=== PATIENT | female | born 1975 | race Caucasian/White ===

== ENCOUNTER 2019-06-10 07:51 | Outpatient (CLI) | payer BC, SELFPAY ==
--- NOTE | 2019-06-10 08:01 | DI.RAD_ITS ---
SYMPTOM/DIAGNOSIS: SHOULDER PAIN RIGHT M25.511 RIGHT SHOULDER: Five views. Comparison 04/21/08 No bone or joint abnormality is identified. The soft tissues are unremarkable. IMPRESSION: Negative right shoulder.
--- NOTE | 2019-06-10 08:01 | DI.RAD_ITS ---
SYMPTOM/DIAGNOSIS: STERNOCLAVICULAR JOINT PJAIN, RT. M25.511 STERNOCLAVICULAR JOINTS: Three views were obtained. No bone or joint abnormality is identified. The soft tissues are unremarkable. IMPRESSION: Negative examination.
== END 2019-06-10 08:11 ==
PROVIDERS: PCP Family Medicine; Visit Provider Specialist/Technologist Athletic Trainer
DX: M25.511 Pain in right shoulder (principal)
CPT/HCPCS: 71130; 73030

== ENCOUNTER 2019-12-15 10:17 | Outpatient (REF) | payer BC, SELFPAY | END 2019-12-15 10:37 | LOC: LBN 10:17 | PROVIDERS: PCP Family Medicine; Visit Provider Obstetrics & Gynecology | DX: R39.15 Urgency of urination (principal) | CPT/HCPCS: 87086 ==

== ENCOUNTER 2020-01-10 02:39 | Outpatient (CLI) | payer BC, SELFPAY ==
--- NOTE | 2020-01-10 12:45 | DI.MAMMO_ITS ---
EXAM: MAMMO SCREENING CLINICAL HISTORY: screening Z12.39 TECHNIQUE: Mammograms were interpreted according to the usual protocol including computer analysis w [employer] CAD system, tomosynthesis and C-view imaging. COMPARISON: 2013 through 2017 FINDINGS: The breasts are composed of scattered fibroglandular densities, Breast Density category B. Right breast: No suspicious masses or suspicious microcalcifications are seen. No skin thickening or abnormal axillary lymph nodes are seen. There has been no significant change from prior exams. Left breast: There is a circumscribed area of nodularity now seen in the upper outer quadrant of the left breast measuring 16 millimeters in diameter. Spot compression views and ultrasound are requeste d for further evaluation. No suspicious calcifications are seen. IMPRESSION: Right breast: BIRADS Category 1, negative mammogram. Yearly screening mammography is recommended. Left breast: BI-RADS Cat 0 - Assessment Incomplete: Need additional imaging evaluation. Breast Density - Category B - Scattered areas of fibroglandular density.
== END 2020-01-10 02:59 ==
PROVIDERS: PCP Family Medicine; Visit Provider Obstetrics & Gynecology
DX: Z12.31 Encounter for screening mammogram for malignant neoplasm of breast (principal); R92.8 Other abnormal and inconclusive findings on diagnostic imaging of breast
CPT/HCPCS: 77063; 77067

== ENCOUNTER 2020-01-10 14:25 | Outpatient (CLI) | payer BC, SELFPAY ==
[2020-01-10 14:54] LABS: Abs Immature Grans 0.02 k/cumm (0.0-0.09); Absolute Basophil Count 0.01 k/cumm (0.0-0.2); Absolute Eosinophil Count 0.08 k/cumm (0.0-0.7); Absolute Lymphocyte Count 2.42 k/cumm (1.2-3.4); Absolute Monocyte Count 0.58 k/cumm (0.11-0.7); Absolute Neutrophil Count 5.68 k/cumm (1.2-6.7); Basophils % 0.1; Eosinophils % 0.9; HCT 37.5 % (36.0-46.0); HGB 12.8 g/dL (12.0-15.5); Immature Grans % 0.2 %; Lymphocytes % 27.5; Mean Corp. HGB Concentration 34.1 g/dL (32.0-36.0); Mean Corpuscular Hemoglobin 30.3 pg (27.0-33.0); Mean Corpuscular Volume 88.7 fL (80-95); Monocytes % 6.6; Neutrophils % 64.7; Platelet Count 335 x1000/uL (130-400); RBC 4.23 m/cumm (4.00-5.20); RBC Distribution Width 13.4 % (11.7-14.6); White Blood Cell Count 8.79 k/cumm (4.4-10.8)
[2020-01-10 15:16] LABS: Hemoglobin A1C 5.2 % (3.8-5.6)
[2020-01-10 15:44] LABS: ALT 43 U/L (14-59); AST 18 U/L (15-37); Albumin 4.1 g/dL (3.4-5.0); Alkaline Phosphatase 73 U/L (46-116); Anion Gap 13.2 mmol/L (3-11); BUN 12 mg/dL (7-18); Bilirubin, Total 1.8 mg/dL (0.2-1.0); CO2 22.8 mmol/L (21.0-32.0); CREATININE 0.72 mg/dL (0.55-1.02); Calcium 9.1 mg/dL (8.5-10.1); Calculated LDL 165 mg/dL (<100); Chloride 104 mmol/L (98-107); Cholesterol 275 mg/dL (<200); Glucose 99 mg/dL (74-106); HDL Cholesterol 49 mg/dL (40-60); Potassium 3.8 mmol/L (3.5-5.1); Sodium 140 mmol/L (136-145); TSH (W/Ref FT4) 1.77 uIU/mL (0.36-3.74); Total Protein 7.1 g/dL (6.4-8.2); Triglyceride 308 mg/dL (<150)
== END 2020-01-10 14:45 ==
PROVIDERS: PCP Family Medicine; Visit Provider Obstetrics & Gynecology
DX: Z00.00 Encounter for general adult medical examination without abnormal findings (principal); Z13.1 Encounter for screening for diabetes mellitus; Z13.220 Encounter for screening for lipoid disorders
CPT/HCPCS: 36415; 80053; 80061; 83036; 84443; 85025

== ENCOUNTER 2020-01-13 03:08 | Outpatient (CLI) | payer BC, SELFPAY ==
--- NOTE | 2020-01-13 | DI.US_ITS ---
EXAM: US BREAST RT LIMITED AND ADDITIONAL VIEWS RIGHT BREAST CLINICAL HISTORY: F/U MAMMO/SPOTS, NODULARITY UPPER OUTER QUAD RT BREAST TECHNIQUE: Ultrasound performed using standard protocol. COMPARISON: MG MAMMO SCREENING from 01/10/2020 FINDINGS: Additional views of the right breast: CC and MLO spot-compression views are performed of the lower a nd outer quadrants. There is a persistent circumscribed nodule measuring 18 millimeters in greatest dimension. Right breast ultrasound: Right breast ultrasound shows a 1.3 x 0.6 x 1.8 centimeter cyst with some in ternal debris located in the 7 o'clock position 9 cm from the nipple, corresponding to the mammograph ic abnormality. An additional 1.1 centimeters cyst is seen in the 9 o'clock position 8 cm from the n ipple. No solid masses are identified. IMPRESSION: BI-RADS category 2, negative with benign findings. Yearly screening mammography is recommended. BI-RADS Cat 2 - Benign Findings Breast Density - Category B - Scattered areas of fibroglandular density DATA REPOSITORY:
--- NOTE | 2020-01-13 14:43 | DI.MAMMO_ITS ---
US BREAST RT LIMITED AND ADDITIONAL VIEWS RIGHT BREAST CLINICAL HISTORY: F/U MAMMO/SPOTS, NODULARITY UPPER OUTER QUAD RT BREAST TECHNIQUE: Ultrasound performed using standard protocol. COMPARISON: MG MAMMO SCREENING from 01/10/2020 FINDINGS: Additional views of the right breast: CC and MLO spot-compression views are performed of the lower a nd outer quadrants. There is a persistent circumscribed nodule measuring 18 millimeters in greatest d imension. Right breast ultrasound: Right breast ultrasound shows a 1.3 x 0.6 x 1.8 centimeter cyst with some in ternal debris located in the 7 o'clock position 9 cm from the nipple, corresponding to the mammograph ic abnormality. An additional 1.1 centimeters cyst is seen in the 9 o'clock position 8 cm from the ni pple. No solid masses are identified. IMPRESSION: BI-RADS category 2, negative with benign findings. Yearly screening mammography is recommended. BI-RADS Cat 2 - Benign Findings Breast Density - Category B - Scattered areas of fibroglandular density
== END 2020-01-13 03:28 ==
PROVIDERS: PCP Family Medicine; Visit Provider Obstetrics & Gynecology
DX: Z12.31 Encounter for screening mammogram for malignant neoplasm of breast (principal); R92.8 Other abnormal and inconclusive findings on diagnostic imaging of breast; N60.11 Diffuse cystic mastopathy of right breast
CPT/HCPCS: 76642; 77063; 77067

== ENCOUNTER 2021-01-17 01:22 | Outpatient (CLI) | payer BC, SELFPAY ==
--- NOTE | 2021-01-17 06:15 | DI.MAMMO_ITS ---
EXAM: MG MAMMO SCREENING CLINICAL HISTORY: screening,Z12.39 TECHNIQUE: Bilateral full field digital CC and MLO mammographic images were obtained with 3D tomosyn thesis and utilizing computer aided detection (CAD). COMPARISON: Available for comparison. FINDINGS: Masses/Architectural Distortion: There are breast nodules seen in the right breast. There has been i nterval increase in the nodule seen in the upper outer quadrant of the right breast 9.7 cm from the n ipple. There has been decrease in size of the nodule seen in the lower outer quadrant of the right b reast. No suspicious nodules are identified. Microcalcifications: No suspicious pleomorphic-type are seen. Skin Thickening/Nipple Retraction: None. IMPRESSION: 1. Increase in size of a upper-outer quadrant right breast nodule. 2. Right breast ultrasound is recommended for further evaluation. BI-RADS Category 0 - Assessment Incomplete: Need additional imaging evaluation Breast Density - Category B - Scattered areas of fibroglandular density Breast density category C or D implies that the patient has dense breast tissue. Dense breast tissue is very common and is not abnormal but dense breast tissue can make it harder to find cancer on a ma mmogram. Also, dense breast tissue may increase their breast cancer risk. This information about the result of the mammogram report was provided to the patient to raise their awareness. Use this report when you speak with the patient about their risks for breast cancer, which includes their family hist ory. At that time, you may recommend for more screening tests (Ultrasound or MRI) as they might be us eful based on their risk. A negative radiographic report should not delay biopsy if a dominant or clinically suspicious mass is present. Up to ten percent of cancers are not identified on mammography. A negative report may reinforce clinical impression. Adenosis and dense breasts may obscure an underlying neoplasm. False positive reports average 6 to 10%. Patient will receive a letter notifying them of these results.
== END 2021-01-17 01:42 ==
PROVIDERS: PCP Family Medicine; Visit Provider Nurse Practitioner Family
DX: Z12.31 Encounter for screening mammogram for malignant neoplasm of breast (principal); N63.11 Unspecified lump in the right breast, upper outer quadrant
CPT/HCPCS: 77063; 77067

== ENCOUNTER 2021-01-22 01:09 | Outpatient (CLI) | payer BC, SELFPAY ==
--- NOTE | 2021-01-22 | DI.US_ITS ---
EXAM: US BREAST RT LIMITED CLINICAL HISTORY: F/U MAMMO, INCREASE IN SIZE OF UPPER OUTER QUADRANT RT BREAST NODULE TECHNIQUE: Ultrasound performed using standard protocol. COMPARISON: US US BREAST RT LIMITED from 01/13/2020 FINDINGS: Right breast ultrasound was performed to evaluate well-circumscribed lateral breast mass seen recent mammogram. Ultrasound shows a 12 x 9 x 11 millimeter in diameter simple cyst in the 10 o'clock posit ion in the breast about 8 cm from the nipple. Additionally there is a 6 millimeter in diameter simpl e cyst in the 10 o'clock position 4 cm from the nipple and a 9 x 4 x 8 millimeter in diameter simple cyst in the 10 o'clock position about 2 cm from the nipple. No solid mass identified. IMPRESSION: The mammographically identified upper-outer quadrant mass of the right breast corresponds to a simple cyst identified ultrasonographically. BI-RADS Cat 2 - Benign Findings Follow-up mammogram recommended in 12 months. DATA REPOSITORY:
== END 2021-01-22 01:29 ==
PROVIDERS: PCP Family Medicine; Visit Provider Nurse Practitioner Family
DX: N60.01 Solitary cyst of right breast (principal); R92.8 Other abnormal and inconclusive findings on diagnostic imaging of breast
CPT/HCPCS: 76642

== ENCOUNTER 2022-04-18 15:42 | Outpatient (REF) | payer BC, SELFPAY ==
[2022-04-18 20:15] LABS: Calculated LDL 164 mg/dL (<100); Cholesterol 255 mg/dL (<200); Glucose 96 mg/dL (74-106); HDL Cholesterol 53 mg/dL (40-60); Triglyceride 191 mg/dL (<150)
== END 2022-04-18 15:43 | disposition home or self-care (01) ==
LOC: NCHCN 15:42
PROVIDERS: PCP Family Medicine; Visit Provider Family Medicine
DX: Z00.00 Encounter for general adult medical examination without abnormal findings (principal); Z13.1 Encounter for screening for diabetes mellitus; Z13.220 Encounter for screening for lipoid disorders
CPT/HCPCS: 80061; 82947

== ENCOUNTER → 2022-04-25 00:48 | Outpatient (CLI) | payer BC, SELFPAY ==
--- NOTE | 2022-04-25 14:56 | DI.MAMMO_ITS ---
Exam(s) MAMMO SCREENING EXAM: MAMMO SCREENING CLINICAL HISTORY: SCREENING FOR BREAST CANCER Z12.31 [facility] Z00.00 TECHNIQUE: Mammograms were interpreted according to the usual protocol including computer analysis w [employer] CAD system, tomosynthesis and C-view imaging. COMPARISON: FINDINGS: The breasts are of moderate density with fairly symmetrical distribution of fibroglandular tissue. N o dominant mass or clumped microcalcification is identified in either breast. The current examinatio n is compared with previous examinations including January 2021 and there has been no gross interval ch rico in appearance in comparison with the prior studies. IMPRESSION: No specific evidence of malignancy at this time. Routine screening examinations are suggested at yea rly intervals due to the family history of breast carcinoma. BI-RADS Category 1 - Negative Breast Density - Category B - Scattered areas of fibroglandular density
== END ==
PROVIDERS: PCP Family Medicine; Visit Provider Family Medicine
DX: Z00.00 Encounter for general adult medical examination without abnormal findings (principal); Z12.31 Encounter for screening mammogram for malignant neoplasm of breast; Z80.3 Family history of malignant neoplasm of breast
CPT/HCPCS: 77063; 77067

== ENCOUNTER 2022-07-22 15:09 | Outpatient (REF) | payer BC, SELFPAY ==
--- NOTE | 2022-07-22 14:00 | PAPFT_PTH ---
PATIENT: Zaida Young LOC: [facility] U#:[id number] AGE/SX: 46/F ROOM: RE07/22/[address]: Sneha Agustin V : 1975 BED: DIS: 07/22/2022 SPEC #: [id number] RECD: 07/22/22 18:21 STATUS: GARRY REMendez #: [id number] ADRIAN: 07/22/22 14:[address]: Sneha Agustin V DEPT: [facility] Cytology RECD BY: Camelia Selby Tissues: 1 - CX/ENDOCX FOR PAP SMEARS Procedures: PAP THIN PREP/UVM Screening HPV DNA PROBE Comments: [id number]
== END 2022-07-22 15:10 | disposition home or self-care (01) ==
LOC: NCHCN 15:09
PROVIDERS: PCP Family Medicine; Visit Provider Family Medicine
DX: Z12.4 Encounter for screening for malignant neoplasm of cervix (principal); Z11.51 Encounter for screening for human papillomavirus (HPV)
CPT/HCPCS: 88142; 87624

== ENCOUNTER 2023-05-05 00:40 | Outpatient (CLI) | payer BC, SELFPAY ==
--- NOTE | 2023-05-05 12:15 | DI.MAMMO_ITS ---
Exam(s) MAMMO SCREENING EXAM: MAMMO SCREENING CLINICAL HISTORY: SCREENING, Z12.31 TECHNIQUE: Mammograms were interpreted according to the usual protocol including computer analysis w [employer] CAD system, tomosynthesis and C-view imaging. COMPARISON: 2013 through 2021 FINDINGS: The breasts are composed of scattered fibroglandular densities, Breast Density category B. No suspicious masses or suspicious microcalcifications are seen. No skin thickening or abnormal axillary lymph nodes are seen. There has been no significant change from prior exams. IMPRESSION: BI-RADS Category 1, Negative mammogram Yearly screening mammography is recommended. Breast Density - Category B, scattered fibroglandular densities. A negative radiographic report should not delay biopsy if a dominant or clinically suspicious mass is present. Up to ten percent of cancers are not identified on mammography. A negative report may reinforce clinical impression. Adenosis and dense breasts may obscure an underlying neoplasm. False positive reports average 6 to 10%. Patient will receive a letter notifying them of these results.
== END 2023-05-05 01:00 ==
LOC: DI 00:41
PROVIDERS: PCP Family Medicine; Visit Provider Family Medicine
DX: Z12.31 Encounter for screening mammogram for malignant neoplasm of breast (principal); R92.8 Other abnormal and inconclusive findings on diagnostic imaging of breast
CPT/HCPCS: 77063; 77067

== ENCOUNTER 2023-08-13 08:40 | Outpatient (REF) | payer BC, SELFPAY ==
[2023-08-13 15:27] LABS: Glucose 108 mg/dL (74-106)
[2023-08-13 16:01] LABS: Calculated LDL 199 mg/dL (<100); Cholesterol 285 mg/dL (<200); HDL Cholesterol 57 mg/dL (40-60); Triglyceride 147 mg/dL (<150)
== END 2023-08-13 08:41 | disposition home or self-care (01) ==
LOC: NCHCN 08:40
PROVIDERS: PCP Family Medicine; Visit Provider Family Medicine
DX: Z00.00 Encounter for general adult medical examination without abnormal findings (principal)
CPT/HCPCS: 80061; 82947

== ENCOUNTER 2023-12-11 08:17 | Day surgery (SDC) | payer BC, SELFPAY ==
--- NOTE | 2023-12-10 11:36 | W.PM.DSUDISC ---
Date of service: 12/11/23 Time of Service: 09:59 Discharge Plan Disposition Patient Disposition: Home Condition: Good Discharge Details Reason For Visit: Screening colonoscopy Attending Provider: Cuate Munroe Primary Care Provider: Sneha Agustin V Home Meds and New Rx's Prescriptions: Continued cholecalciferol (vitamin D3) 2,000 unit capsule 2,000 unit PO DAILY fluoxetine [Prozac] 10 mg capsule 10 mg PO DAILY evening primrose oil 500 mg capsule 500 mg PO DAILY Rx Instructions: give with meal/snack zinc 50 MG tablet 50 mg PO DAILY magnesium 250 MG tablet 250 mg PO DAILY multivitamin 1 EACH capsule 1 ea PO DAILY omega 5-hev-wiq-fish oil 1 EACH capsule 1 ea PO DAILY Discontinued bisacodyl [Dulcolax (bisacodyl)] 5 mg tablet,delayed release (DR/EC) 5 mg PO ONCE Qty: 4 0RF Rx Instructions: Colonoscopy Bowel Prep- Per Instructions polyethylene glycol 3350 17 gram/dose powder 238 g PO ONCE Qty: 238 0RF Rx Instructions: Colonoscopy Bowel Prep- Per Instructions Discharge Instructions Instructions: Colorectal Polyps (GEN) Additional Instructions: Zaida, you did great today. Hopefully the colonoscopy was a relatively comfortable experience for you. Everything went very smoothly during the procedure, he did have 2 polyps. Both were quite small. In fact one of them, might not even be a true polyp. Regardless, I removed both of these things, and I will send them off for testing. Once I have the pathology report that describes the nature of the polyps I will give you a call and let you know the timing of your next colonoscopy. The worst case scenario would be 3 years, but I am optimistic that it will be a 5-year follow-up. If you have any questions at all, please do not hesitate to give us a call or just swing by at any time. 1. If tolerated, consume a soft, low fiber diet for 1-2 days. 2. Do not drive, drink alcohol, operate machinery, make critical decisions, or do activities that require coordination or balance for 24 hours. 3. Because air was put into your colon during the procedure, expelling air from your rectum (passing gas or farting) is normal. 4. You may not have a bowel movement for 1-3 days because of the colonoscopy prep. This is normal. 5. Go directly to the emergency room if you notice any of the following: Develop chills (warm to touch), or if you have a thermometer and your temperature is above 101 Difficulty breathing or difficultly swallowing Persistent vomiting Severe abdominal pain, other than gas cramps Severe chest pain Black, tarry stools Any bleeding ? exceeding one tablespoon 6. Call your physician if the site where your intravenous was started becomes red, swollen, painful, and warm to touch. 7. Your physician has reviewed your pre-procedure medications. Please continue to take those medications as previously ordered. You will be given specific information/education regarding any changes to your medications before leaving. Activity:: Activity as Tolerated Diet:: As Tolerated Discharge Orders Discharge Orders: Discharge Order (Routine); Ordered 12/10/23 Ordered By: Cuate Munroe DS: Diagnosis Discharge Diagnosis (1) Encounter for screening colonoscopy: Status: Acute Asessment and Plan: Follow-up on polypectomy results
--- NOTE | 2023-12-10 11:37 | W.COLOREPORT ---
Date of service: 12/11/23 Time of Service: 10:01 Colonoscopy Report Date of procedure: 12/11/23 Pre-op diagnosis general: Screening colonoscopy Post-op diagnosis procedure note: other (Colorectal polyps) Procedure: Colonoscopy with polypectomy Surgeon: Cuate Munroe Anesthesia Type: General:No Airway Estimated blood loss (mL): 5 Pathology: other (0.25 cm rectal polyp, 0.5 cm colon polyp at 75 cm) Complications: None Disposition: same day Indications: Patient is 48 years old, she needs her for screening colonoscopy Prep: Miralax/Dulcolax Procedure Start Time: 09:37 Procedure End Time: 09:53 Retraction Time: 8 Findings: 0.25 cm rectal polyp, 0.5 cm colon polyp at 75 cm Procedure Description: After the induction of monitored anesthetic care, and with the patient in left lateral decubitus position, I began by performing an external anorectal exam.? Perineum and skin were normal, as was the anal verge.? There was no evidence of external hemorrhoids.? Next, I performed a digital rectal exam.? I did not appreciate any abnormal findings.? Next, I advanced a colonoscope into the rectal vault.? I performed retroflexion.? This was normal.? Using insufflation, I then advanced the colonoscope beyond the rectal folds and into the sigmoid colon before advancing towards the cecum.? The quality of the prep was outstanding.? The scope was noted to be in the cecum by identification of the ileocecal valve and appendiceal orifice.? I then began withdrawing the colonoscope using repeated irrigation as necessary for full evaluation of the colonic mucosa. Around 75 cm from the anal verge I identified a 0.5 cm polyp. ?It appeared slightly pedunculated in character. ?I was able to remove this with a cold forcep polypectomy. ?I examined the site, and there was minimal bleeding. ?Once this was completed, I continued to withdraw the scope and examine the remainder of the colonic mucosa. ?Once the scope was withdrawn to the level of the rectum, great care was taken to examine portions of the rectal folds.? Just at the upper portion of the rectal vault was another polyp. This was flat. It was 0.25 cm. It was removed with cold forceps in a similar fashion to the first. There were no issues. Finally, the scope was withdrawn and the patient was brought to the same-day surgery recovery unit as the anesthetic wore off. ?The findings and instructions were shared with the patient prior to discharge. [place] Bowel Prep [place] Bowel Prep Right Colon: 3 Left Colon: 3 Transverse Colon: 3 Total Score: 9
[2023-12-11 08:29] VITALS: BP 125/84; PULSE 82; RESP 16; TEMP 36.3; O2SAT 98
--- NOTE | 2023-12-11 08:36 | ANES.PREOP_ITS ---
General Info Date of Service Date Performed: 12/11/23 Height: 5 ft 5.5 in Weight: 77.111 kg Body Mass Index (BMI): 27.8 Surgical Procedure: Operation Date: 12/11/23 10:05 Proposed Procedure Side Surgeon kirk Munroe MD Meds Allergies and Home Medications Allergies Allergy/AdvReac Type Severity Reaction Status Date / Time cefaclor [From Ceclor] Allergy Severe COMPROMISED Verified 12/11/23 08:41 AIRWAY amoxicillin trihydrate Allergy Intermediate HIVES Verified 12/11/23 08:41 [From Augmentin] Penicillins Allergy Intermediate HIVE Verified 12/11/23 08:41 potassium clavulanate Allergy Intermediate HIVES Verified 12/11/23 08:41 [From Augmentin] sulfamethoxazole Allergy Mild HIVES Verified 12/11/23 08:41 [From Septra] trimethoprim [From Septra] Allergy Mild HIVES Verified 12/11/23 08:41 codeine AdvReac Intermediate Nausea/ Verified 12/11/23 08:41 vomiting pain meds AdvReac Intermediate Nausea Uncoded 12/11/23 08:41 Home Medication Medication Instructions Recorded magnesium 250 mg tablet 250 mg PO DAILY 10/26/17 multivitamin 1 ea PO DAILY 10/26/17 omega 8-hmz-gfa-fish oil 300 1 ea PO DAILY 10/26/17 mg-1,000 mg capsule zinc 50 mg tablet 50 mg PO DAILY 10/26/17 cholecalciferol (vitamin D3) 50 2,000 unit PO DAILY 02/18/19 mcg (2,000 unit) capsule evening primrose oil 500 mg capsule 500 mg PO DAILY 03/20/21 fluoxetine 10 mg capsule (Prozac) 10 mg PO DAILY 11/26/23 Current Visit Medications: Current Medications Generic Name Dose Route Start Last Admin Trade Name Freq PRN Reason Stop Dose Admin Hyoscyamine Sulfate 0.125 mg 12/10/23 11:38 Hyoscyamine 0.125 Mg Sl/Oral/Chew SL 01/09/24 11:37 DIRECTED PRN Ringer's Solution 1,000 mls @ 80 mls/hr 12/11/23 06:00 IV 12/11/23 23:59 INFUSION JOSHUA IV Miscellaneous Supplies 1 each 12/11/23 06:00 Iv Access IV 12/11/23 23:59 DIRECTED [facility] Ondansetron HCl 4 mg 12/10/23 11:38 Ondansetron 4 Mg/2 Ml Vial IVP 01/09/24 11:37 Q4H PRN PRN Nausea / Vomiting Sodium Chloride 0 ml 12/11/23 06:00 Normal Saline Flush 10 Ml Syr IV 12/11/23 23:59 PRN PRN Sodium Chloride 0 ml 12/11/23 06:00 Normal Saline 10 Ml Vial IJ 12/11/23 23:59 DIRECTED PRN Sterile Water 0 ml 12/11/23 06:00 Water,Injection,Sterile 10 Ml Vial IJ 12/11/23 23:59 DIRECTED PRN PFSH Active Problems Active Problems: Problem Status Onset Code Encounter for screening colonoscopy Z12.11 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 Counselling with Maycol Llamas in past. Surgical History Surgical History (Updated 12/11/23 @ 08:35 by Melba Banuelos RN) Hx of hysterectomy Status post laparoscopic supracervical hysterectomy suburethral sling reduction mammoplasty abdominoplasty Tubal Ligation, Laparoscopic Endometrial Ablation Tobacco Smoking/Tobacco Use Status: Former Tobacco Use Alcohol Alcohol Intake: current Alcohol intake frequency: a few times a week Substance Use Substance use: Never Substance use type: does not use Vital Signs and Lab Results Vital Signs Most Recent Vital Signs in EMR: Temp Pulse Resp BP Pulse Ox 36.3 C L 82 16 125/84 98 12/11/23 08:29 12/11/23 08:29 12/11/23 08:29 12/11/23 08:29 12/11/23 08:29 Lab Results Blood Type / Crossmatch: No Data to Display Complete Blood Count: No Data to Display Complete Metabolic Panel: No Data to Display Liver Function Panel: No Data to Display Coagulation Panel: No Data to Display Cardiac Panel: No Data to Display Arterial Blood Gas: No Data to Display Venous Blood Gas: No Data to Display Pancreas Panel: No Data to Display Thyroid Panel: No Data to Display Infectious Disease: No Data to Display Blood Cultures: No Data to Display Toxicology Panel: No Data to Display Panel: No Data to Display Anesthesia Assessment and Plan Anesthesia History Personal History: No History of Anesthesia Complications Family History: No Family History of Anesthesia Complications Exercise Tolerance Exercise Tolerance: Metabolic Equivalents>4 Pertinent Negatives Pertinent Negatives: No Symptoms of GERD, No Major Cardiovascular Symptoms or Complaints, No Major Pulmonary Symptoms or Complaints and No History of CVA/TIA Cardiac & Pulmonary Exam Cardiac Exam: Normal S1/S2 Heart Sounds Pulmonary Exam: Clear Bilateral Breath Sounds Implantable Cardiac Device Does patient have a Pacemaker or an ICD?: No Airway Exam Known Difficult Airway: No Mallampati Class: 2 Mouth Opening: Normal (> 3cm) Thyromental Distance: Greater than 3 cm Neck Range of Motion: Full ROM Neck Circumference: Normal Teeth Condition: Normal Dentition ASA Classification ASA Score: ASA 2 Emergency Case?: No NPO Status NPO Status: NPO Clears >2 hours, Solids >8 hours Status Status: History of Hysterectomy Anesthesia Plan Resuscitation Status: Full Code Anesthesia Technique: General Anesthesia Airway Planned: Natural Airway Monitors Used: Standard Monitors
[2023-12-11] MEDS: Lactated Ringers 1,000 ML 80 ML IV (08:45)
[2023-12-11 09:01] VITALS: BMI 27.8
--- NOTE | 2023-12-11 09:39 | BOWEL_PTH ---
PATIENT: Zaida Young LOC: [facility] U#:[id number] AGE/SX: 48/F ROOM: RE12/11/[address]: Cuate Munroe MD : 1975 BED: DIS: 12/11/2023 SPEC #: [id number] RECD: 12/11/23 12:44 STATUS: GARRY RE #: [id number] ADRIAN: 12/11/23 09:[address]: Cuate Munroe DEPT: Surgical Specimen RECD BY: Camelia Selby ENTERED: 12/11/23 12:44 SP TYPE: Bowel OTHR DR: Sneha Agustin V Tissues: 1 - BIOPSY BOWEL 2 - BIOPSY BOWEL Procedures: GROSS AND MICRO LEVEL 4 Comments: [id number]
[2023-12-11 09:57] VITALS: BP 119/65; PULSE 64; RESP 16; TEMP 36.3; O2SAT 99
[2023-12-11 10:26] VITALS: BP 112/84; PULSE 56; RESP 16; TEMP 36.1; O2SAT 100
--- NOTE | 2023-12-11 11:06 | W.ANESPOSTOP ---
Postoperative Evaluation Date, Time and Location Date Performed: 12/11/23 Time Performed: 10:26 Patient Location: Day Surgery Unit Vital Signs Most Recent Imported Vital Signs: Most Recent Vital Signs Temp Pulse Resp BP Pulse Ox 36.1 C L 56 L 16 112/84 100 12/11/23 10:26 12/11/23 10:26 12/11/23 10:26 12/11/23 10:12/11/23 10:26 Pain Score Most Recent Pain Score: Most Recent Pain Score Pain Level 0 12/11/23 10:26 Assessment Mental Status: Awake (Alert & Oriented to Patient Baseline) Airway and Respiratory Function: Patent airway with normal (patient baseline) respiratory exam Cardiovascular Function: Hemodynamically Stable Hydration Status: Adequately Hydrated Nausea & Vomiting: No Nausea or Vomiting Pain: Pt. Denies Any Pain Peripheral Nerve Block: Patient did not receive a nerve block
== END 2023-12-11 10:40 | disposition home or self-care (01) ==
LOC: SUR 08:17
PROVIDERS: PCP Family Medicine; Visit Provider Surgery
PROC: 0DJD8ZZ Inspection of Lower Intestinal Tract, Via Natural or Artificial Opening Endoscopic (ICD-10-PCS; CPT 45378; principal; 2023-12-11 10:00)
DX: Z12.11 Encounter for screening for malignant neoplasm of colon (principal); D12.4 Benign neoplasm of descending colon; K62.5 Hemorrhage of anus and rectum
CPT/HCPCS: 45380; 88305; J2704

== ENCOUNTER 2024-04-26 16:13 | Outpatient (REF) | payer BC, SELFPAY ==
[2024-04-26 20:11] LABS: Calculated LDL 161 mg/dL (<100); Cholesterol 273 mg/dL (<200); HDL Cholesterol 51 mg/dL (40-60); TSH 1.89 uIU/Ml (0.36-3.74); Triglyceride 307 mg/dL (<150)
[2024-04-26 20:33] LABS: Hemoglobin A1C 5.3 % (<5.7)
[2024-04-27 18:28] LABS: FSH 17.2 mIU/mL (See Note); LH 49.1 mIU/mL (See Note)
== END 2024-04-26 16:14 | disposition home or self-care (01) ==
LOC: NCHCN 16:13
PROVIDERS: PCP Family Medicine; Visit Provider Family Medicine
DX: Z00.00 Encounter for general adult medical examination without abnormal findings (principal); E78.5 Hyperlipidemia, unspecified; F41.8 Other specified anxiety disorders; Z13.1 Encounter for screening for diabetes mellitus
CPT/HCPCS: 80061; 83001; 83002; 83036; 84443

== ENCOUNTER → 2024-06-08 00:52 | Outpatient (CLI) | payer BC, SELFPAY ==
--- NOTE | 2024-06-08 | DI.MAMMO_ITS ---
Exam(s) MAMMO SCREENING EXAM: MAMMO SCREENING CLINICAL HISTORY: SCREENING MAMMO Z12.31 TECHNIQUE: Mammograms were interpreted according to the usual protocol including computer analysis w [employer] CAD system, tomosynthesis and C-view imaging. COMPARISON: 2014 through 2022 FINDINGS: The breasts are composed of scattered fibroglandular densities, Breast Density category B. No suspicious masses or suspicious microcalcifications are seen. No skin thickening or abnormal axillary lymph nodes are seen. There has been no significant change from prior exams. IMPRESSION: BI-RADS Category 1, Negative mammogram Yearly screening mammography is recommended. Breast Density - Category B, scattered fibroglandular densities. A negative radiographic report should not delay biopsy if a dominant or clinically suspicious mass is present. Up to ten percent of cancers are not identified on mammography. A negative report may reinforce clinical impression. Adenosis and dense breasts may obscure an underlying neoplasm. False positive reports average 6 to 10%. Patient will receive a letter notifying them of these results.
--- OUTSIDE RECORDS SUMMARY | 2024-06-08 00:59 | XMS_ITS | Encounter Summary ---
Author Organization [facility] Address [facility] [place] [address] Care Team Providers Care Commercial Census Taker Name Role Phone Sneha Agustin MD Primary Care Provider [phone] Encounter Details Date Type Department Care Team (Late st Contact Info) Description 11/11/2022 Telephone Primary Care at [place] [address] [place] [address] Priscila uV, MANAGER ESTATE [address] [place] [address] Social History Tobacco Use Types Packs/Day Years Used Date Smoking Tobacco: Former Cigarettes Q uit: 02/22/2010 Smokeless Tobacco: Never Sex and Gender Information Value Date Recorded Sex Assigned at Not on file Gender Identity Not on file Sexual Orientation Not on file documented as of this encounter Miscellaneous Notes * Telephone Encounter - Dariana Snell CMA - 11/11/2022 6:52 AM EST error documented in this encounter Plan of Treatment Not on file documented as of this encounter Visit Diagnoses Not on filedocumented in this encounter Care Teams Commercial Census Taker Relationship Specialty Start Date End Date Sneha Agustin MD [address] [place] [address] PCP - General Family Medicine 07/18/19 documented as of this encounter
--- OUTSIDE RECORDS SUMMARY | 2024-06-08 00:59 | XMS_ITS | Encounter Summary ---
Author Organization [facility] Address [facility] [place] [address] Care Team Providers Care Software Technician Name Role Phone Sneha Agustin MD Primary Care Provider Reason for Visit * Reason Comments Dermatitis * Consultation (Routine) - Closed Specialty Diagnoses / Procedures Referred By Faina duran Referred To Contact Dermatology Diagnoses Atopic dermatitis Atopic Dermatitis Procedures Consult Sneha Agustin MD [address] [place] [address] [facility] Dermatology [address] [place] [address] Referral ID Status Reason Start Date Expiration Date Visits Re quested Visits Authorized [id number] Closed 05/09/2019 05/08/2020 1 1 Encounter Details Date Type Department Care Team (Late st Contact Info) Description 07/18/2019 11:00 AM EDT Office Visit Dermatology at [facility] [address] [place] [address] Jo Crews MD [facility] DR KATHLEEN [place] [address] [place] (actinic keratosis); Multiple benign nevi; Seborrheic keratoses; EIC (epidermal inclusion cyst); Telangiectasia; Matos angioma; Dermatofibroma; Family history of melanoma; Irritant contact dermatitis, unspecified trigger Social History Tobacco Use Types Packs/Day Years Used Date Smoking Tobacco: Never Assessed Sex and Gender Information Value Date Recorded Sex Assigned at Not on file Gender Identity Not on file Sexual Orientation Not on file documented as of this encounter Progress Notes * Jo Crews MD - 07/18/2019 11:00 AM EDT DERMATOLOGY OUTPATIENT CLINIC NOTE Date of service: 07/18/2019 Zaida Young : 1975 Provider: Jo Crews MD PROBLEM: Dermatitis and other concerning spots SKIN HISTORY: None HPI Zaida Young is a 43 y.o. female. She is a new pt here for dermatitis on the left hand and shetook her wedding ring off and now she has no rash. She had blistering and flakes of skin. She noticed it this past summer. She mentioned she took the rings off for the past week and the rash has resolved. She has bene using topical cortisone 10 over the counter. Her rings are gold. She is looking for a fulls kin exam and she has a concern of a spot on the nose that has deuce present for the past year. Non itching or bleeding. Just a red spot that never resolves. She has a red spot on the left chest noticed it this summer. She has had moles removed as a precaution, which were benign. - [id number] [facility] [address] [facility] Social History: Self employed - spray foam insulation Family History: Father - Melanoma ADR: Allergies not on file CURRENT MEDICATIONS: Current Outpatient Medications Medication Sig Dispense Refill ??? multivitamin (THERAGRAN) Tablet Take 1 tablet by mouth daily. ??? ergocalciferol, vitamin D2, (VITAMIN D ORAL) Take by mouth. ??? magnesium 250 mg Tablet Take by mouth. ??? ZINC ORAL Take by mouth. ??? fish oil-omega-3 fatty acids 1,000 mg Capsule Take 2 g by mouth daily. No current facility-administered medications for this visit. PROBLEM LIST: There is no problem list on file for this patient. ROS General: feeling well. Oriented X 3. Skin: denies other skin complaints EXAM General: NAD, pleasant, cooperative Skin: Patient was asked to undress to the level of her comfort. Verbalized that the provider's preference is for the patient to remove all clothing and that the provider will not examine areas patient elects to keep covered. Patient's decision was to remove bra and underwear for a total body skin exam. This includes examination of the scalp, hair, face, ears, neck, chest, breasts, abdomen, back, axillae, upper and lower extremities, hands, and feet. Buttocks and genitalia were examined with patient's consent. Significant skin findings: -Nasal dorsum x 1: pink, gritty papule. [Total: 1] -Scalp, trunk and extremities: scattered, 2-6 mm medium brown macules. -Trunk: waxy, brown stuck-on papules. -Left lower back: 8 mm firm, mobile nodule. -Chest: telangiectasias -Trunk: red dome-shaped papules -Left lateral calf, right benton: firm pink papules. -Left ring finger: clear on examination today. ASSESSMENT/PLAN Actinic Keratosis - Explained etiology, natural history and premalignent potential of these lesions. - Discussed treatment with cryotherapy, including the risks and benefits. - Patient elects to proceed with cryotherapy today. ?? Procedure: Destruction of lesion(s) with cryotherapy (LN2). Location(s): As noted above. Number: 1 Discussed procedure and expectations, including risks (especially hypopigmentation) and benefits. Verbal consent obtained. Frozen with LN2, 15-30 second thaw time, twice. There were no complications;patient tolerated the procedure well. Post-procedure expectations and wound care reviewed. - Instructed patient to return to clinic for re-evaluation if lesion(s) does not resolve with this treatment as expected. Benign-Appearing Nevi - No atypical lesions or features worrisome for malignancy. - Advised patient to watch for anything new or changing. Discussed changes (bleeding, pain, change in color or shape) that should prompt re-evaluation.?? - Will continue to monitor. Seborrheic Keratoses - Explained that these are hereditary and adult-acquired. Reassured patient of benign nature. No treatment necessary. - Discussed cosmetic removal with cryotherapy. Patient quoted $100 for removal of 1-10, and $200 for removal of 11-20. - Advised patient to call if they become inflamed or irritated. Epidermal Inclusion Cyst - Discussed benign nature of lesion and provided reassurance. No treatment necessary at this time. - Discussed excising the lesion if bothersome to patient. Patient is aware that this option would be trading the lesion for a scar. Telangiectasia - Discussed benign nature of lesion and provided reassurance. No treatment necessary at this time. Matos Angiomas - Discussed benign nature of lesions and provided reassurance. No treatment necessary at this time. Dermatofibroma - Discussed benign nature of lesion and provided reassurance. No treatment necessary. Irritant vs allergic contact dermatitis - Advised to remove rings at night - Advised to be sure to dry under ring after handwashing. - If a true allergy to ring, consider apply a coat of clear nail nicaraguan. - continue to use hydrocortisone as needed Family History of Skin Cancer Melanoma (father), yearly skin exam RTC - 1 year for a full skin exam; sooner if needed. Reminder placed in system to scheduled. Instructed patient to call with questions or concerns. Note initiated and routed to physician for review and change by: CHRISTIAN OWENS LPN I, Valerie Us, Clinical Scribe have performed the documentation for this encounter in the presence of and acting as a scribe for Jo Crews MD. I, Dr. Jo Crews, performed the visit service though my nurse assisted me in scribing the note. I reviewed and edited this note above, a scribed service performed by my nurse. On closure of this note I agree with the accuracy of the documentation. Jo Crews MD Section of Dermatology [facility] documented in this encounter Plan of Treatment Not on file documented as of this encounter Visit Diagnoses Diagnosis AK (actinic keratosis) Actinic keratosis Multiple benign nevi Benign neoplasm of skin, site unspecified Seborrheic keratoses EIC (epidermal inclusion cyst) Sebaceous cyst Telangiectasia Other and unspecified capillary diseases Matos angioma Nevus, non-neoplastic Dermatofibroma Benign neoplasm of skin, site unspecified Family history of melanoma Family history of other specified malignant neoplasm Irritant contact dermatitis, unspecified trigger documented in this encounter Care Teams Software Technician Relationship Specialty Start Date End Date Sneha Agustin MD [address] [place] [address] PCP - General Family Medicine 07/18/19 documented as of this encounter
--- OUTSIDE RECORDS SUMMARY | 2024-06-08 00:59 | XMS_ITS | Encounter Summary ---
Author Organization [facility] Address [address] [place] [address] Care Team Providers Care Floriculture Teacher Name Role Phone Sneha Agustin MD Primary Care Provider [phone] Encounter Details Date Type Department Care Team (Latest Contact Info) Description 10/28/2017 12:46 EST - 10/28/2017 23:59 [facility] [address] [address] Unknown, Provider, Discharge Disposition: Home or Self Care Social History Tobacco Use Types Packs/Day Years Used Date Smoking Tobacco: Never Assessed Sex and Gender Information Value Date Recorded Sex Assigned at Not on file Gender Identity Not on file Sexual Orientation Not on file documented as of this encounter Discharge Disposition Disposition Code Departure Means Destination Home or Self Retirement documented in this encounter Plan of Treatment Not on file documented as of this encounter Visit Diagnoses Not on filedocumented in this encounter Care Teams Floriculture Teacher Relationship Specialty Start Date End Date Sneha Agustin MD [address] [place] [address] PCP - General 08/06/11 documented as of this encounter
--- OUTSIDE RECORDS SUMMARY | 2024-06-08 00:59 | XMS_ITS | Encounter Summary ---
Author Organization [facility] Address [address] [place] [address] Care Team Providers Care Bearing Ring Assembler Name Role Phone Unavailable Primary Care Provider Unavailabl e Encounter Details Date Type Department Care Team (Late st Contact Info) Description 12/18/2004 Before PRISM Converted Visit (Maple) [facility] - Maple conversion [address] [place] [address] Jaimie Child MD Social History Tobacco Use Types Packs/Day Years Used Date Smoking Tobacco: Never Assessed Sex and Gender Information Value Date Recorded Sex Assigned at Not on file Gender Identity Not on file Sexual Orientation Not on file documented as of this encounter Procedure Notes * Jaimie Child MD - 06/19/2011 1540 EDT DATE: 12/16/2004 SURGEON: JAIMIE CHILD MD RED MUD THICKENER OPERATOR: KAY HERNANDEZ CCIII ([facility]). 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 PROCEDURE: Suction lipectomy of the flank regions and posterolateral chest regions, bilateral reduction mammoplasties (Varela pattern with nipple grafting). ANESTHESIA: General endotracheal anesthesia. INDICATIONS: This adult female upon whom I did an abdominoplasty in the past requested bilateral reduction mammoplasties and suction lipectomy of the above- noted areas. The basic elements of the operative procedure, follow up, and possible complications were discussed with the patient preoperatively. Because of the patient's smoking history, a nipple-grafting Varela pattern reduction mammoplasty was planned. The patient was marked in the preoperative holding area for the areas of suction lipectomy and for the breast reduction. The patient's sternal to nipple distance on the right was 31 cm, and on the left 34 cm. The new sternal to nipple distance was set at 24 cm bilaterally. NARRATIVE: The patient was taken to the operating room, placed on the [place], and general anesthesia was established on the [facility]. Thereafter, the patient was rolled into the prone position over adequate padding on the operating table. Her back and flanks were sterilely prepped and draped in the routine fashion. Thereafter, the Martins tumescent infiltration unit was used to produce a tumescent operative site at the four locations noted above. Thereafter, standard suction lipectomy was done on the four sites. The right flank produced 175 cc of aspirant, the right posterolateral chest 75 cc, the left flank 175 cc, and the left posterolateral chest 75 cc. The skin puncture wounds were closed with one 4-0 Monocryl interrupted inverted Vicryl at each site, and DERMABOND was placed on these. These procedures having been completed, the patient was turned into the supine position on a second operating room table, and thereafter the nursing staff inserted a Powell catheter using sterile technique, and applied Venodynes. The patient's chest was then sterilely prepped and draped in the routine f ashion. The breast reduction was begun by using a 4.5 cm in diameter nipple-areolar template to circumscribe the right nipple areolar complex, and then this was removed as a full-thickness skin graft which was thinned on the dermal surface and placed in a saline-moistened 4 x 4. This was placed in a sterile Ever dish, and this was placed on ice. Thereafter, the inframammary incision was done, and with the Bovie, the breast was elevated from the prepectoral fascia up to approximately the level of the third rib. Thereafter, the medial, central, and lateral skin/parenchymal resection was done en bloc. A staple was placed at the 12 oclock position, and the specimen was weighed. The specimen weighed 438 g. This was then sent to pathology for permanent sections. Hemostasis having been verified, the breast tissue was tacked together with jayden. The same procedure was done on the left side, and 580 g of tissue was resected. The patient was viewed from the footof the bed in the semi-Edagr position, and it appeared to me as though her breasts were symmetrical. The incision sites were then closed w ith 3-0 Monocryl interrupted inverted sutures. Next, the 4.5 cm in diameter nipple-areolar templatewas used to outline the nipple-areolar graft recipient sites. These sites were de-epithelized, hemostasis was obtained with Bovie cautery, and the appropriate nipple-areolar graft was placed on each respective breast. These were held into position with 3-0 nylon ties, which were not secured, and thereafter the perimeter of the nipple-areolar graft was sutured to the recipient site using a running5-0 rapid-absorbing catgut. Xeroform, cotton mineral oil bolsters were then placed on the nipple-areolar complexes and secured with the tie-over nylons. At the end of the procedure, all of the skin of the breasts was pink and had good capillary refill. The repair sites were covered with one inch Steri-Strips. A surgical bra was placed on the patient and she was extubated and returned to the recovery room in satisfactory condition, having tolerated her procedures well. ESTIMATED BLOOD LOSS: Approximately 50 cc. FLUIDS: SPECIMENS: COMPLICATIONS: SHANTA Urbano was present and assisted in all ocasio portions of the case, because no qualified resident was available. d - 12/16/2004 16:32:51 - JAIMIE CHILD MD t - 12/18/2004 08:36:10 - Voice ID - [id number] Document ID - [id number] cc: BOONE CHILD MD, <Dictator> This document has been electronically signed by JAIMIE CHILD MD on 12/28/2004 12:15:06. documented in this encounter Plan of Treatment Not on file documented as of this encounter Visit Diagnoses Not on filedocumented in this encounter
--- OUTSIDE RECORDS SUMMARY | 2024-06-08 00:59 | XMS_ITS | Encounter Summary ---
Author Organization [facility] Address [address] [place] [address] Care Team Providers Care Medical File Clerk Name Role Phone Sneha Agustin MD Primary Care Provider [phone] Encounter Details Date Type Department Care Team (Late st Contact Info) Description 03/05/2017 Results Only [facility] [phone] Sneha Agustin MD [address] [place], [place] [address] Social History Tobacco Use Types Packs/Day Years Used Date Smoking Tobacco: Never Assessed Sex and Gender Information Value Date Recorded Sex Assigned at Not on file Gender Identity Not on file Sexual Orientation Not on file documented as of this encounter Plan of Treatment Not on file documented as of this encounter Procedures Procedure Name Priority Date/Time Associated Diagnosis Comments SURGICAL PATHOLOGY Routine 03/05/2017 19 :45 EDT documented in this encounter Results * SURGICAL PATHOLOGY (03/05/2017 19:45 EDT) Pathology Report: SURGICAL PATHOLOGY REPORT Reports generated via electronic interface contain original data; however they are lacking the format of the original report. Caution should be taken when reading/interpret ing unformatted reports. Name: ? ZAIDA YOUNG ? Accession #: ? [id number] ? : ? 1975 (Age: 41) ??F ? Collect Date: ? 03/05/2017 ? Location: ? [facility] ? Receive Date: ? 03/06/2017 ? Provider: SNEHA AGUSTIN MD Copy to: ? Final Pathologic Diagnosis: A. ??SKIN OF BACK, LEFT, PUNCH BIOPSY: - Melanocytic nevus, intradermal type. B. ??SKIN OF BACK, RIGHT, PUNCH BIOPSY: - Melanocytic nevus, compound type, with unusual architectural features and moderate cytologic atypia. ??See comment. - Nevus present at peripheral tissue edges. C. ??SKIN OF HIP, PUNCH BIOPSY:- Melanocytic nevus, intradermal type. Comment: The biopsy from R back (B) consists of a compound melanocytic nevus with a moderate degree of architectural disorder and cytologic atypia. ??The nevus extends to the peripheral edges of the biopsy specimen. ??Correlation with the clinical history and appearance of the lesion is recommended. ??If this is a small biopsy of a much larger lesion, it may not be sales representative consultant of the entire lesion. ??(Dr. Stover)/[facility] Microscopic Description: (A, C) Sections are of a papule with mild epidermal hyperplasia and hyperkeratosis. ??There is a proliferation of melanocytes within the dermis. ??The proliferation consists of nests, cords, and strands that diminish in size with descent into the dermis. ??The melanocytes are slightly enlarged but generally have round-oval nuclei and a moderate amount of cytoplasm. ??The melanocytes show surface room shop optician maturation. (B) The epidermis is hyperplastic with elongate and anastomosing rete ridges. There is a compound proliferation of melanocytes with both epidermal and dermal components. ??The junctional melanocytes are arranged in nests and as individual cells. ??The nests predominate but vary to moderate degree in size, shape, and spacing. ??The nests are located between and the sides of rete ridges, in addition to at the tips of the ridges. ??Nests bridge rete ridges. ??Focally, individual melanocytes are prominent and unevenly spaced but show no confluent growth or well-developed upward migration. ??The melanocytes are enlarged and have ill-defined cytoplasm containing melanin pigment. ??The nuclei show a moderate degree of size and shape variation with occasional large, irregular forms. ??The dermal component consists of nests and cords of similar melanocytes that show surface room shop optician maturation with descent. ??There is papillary dermal fibroplasia. ??(Dr. Stover)/[facility] Document reviewed and electronically signed by: JESSICA STOVER MD Report ??Date: 03/09/2017 11:52 By the signature above, the attending physician certifies that he/she has personally conducted a gross and/or microscopic examination of the described specimens and rendered or confirmed the above diagnosis. Specimen(s) Received: A. ??L back B. ??R back C. ??Hip Clinical History: All three removed using a 5.0 mm punch bx; three nevi with various atypia; A. raised, brownish-pink 3.0 x 2.0 mm lesion; B. two toned, slightly irregular nevus, 3.0 mm diameter; C. irregularly bordered, flat brown lesion Gross Description: A. ?Received in formalin labelled with proper patient identification (initials C, S) and left back lesion is a punch biopsy of andersen-white skin (0.5 cm in diameter and 0.5 cm in thickness). Bisected and submitted in A1. B. ?Received in formalin labelled with proper patient identification (initials C, S) and right back lesion is a punch biopsy of andersen-white skin (0.4 cm in diameter and 0.4 cm in thickness). There is an eccentrically located andersen-brown macule that measures 0.2 x 0.2 cm, which grossly extends to one edge. Bisected and submitted in B1. C. ?Received in formalin labelled with proper patient identification (initials C, S) and hip lesion is a punch biopsy of andersen-white skin (0.5 cm in diameter and 0.5 cm in thickness). Bisected and submitted in C1. Dr. Lomax 03/07/2017 9:58 AM End of Report [facility] 03/05/2017 19:4 5 EDT 03/06/2017 19:45 EDT Sneha Agustin MD PATHOLOGY ORDERABLES [facility] [address] [place] [address] documented in this encounter Visit Diagnoses Not on filedocumented in this encounter Care Teams Medical File Clerk Relationship Specialty Start Date End Date Sneha Agustin MD [address] [place] [address] PCP - General 08/06/11 documented as of this encounter
--- OUTSIDE RECORDS SUMMARY | 2024-06-08 00:59 | XMS_ITS | Encounter Summary ---
Author Organization [facility] Address [address] [place] [address] Care Team Providers Care Fire Alarm Dispatcher Name Role Phone Sneha Agustin MD Primary Care Provider [phone] Encounter Details Date Type Department Care Team (Late st Contact Info) Description 10/28/2017 Results Only [facility] [[email or web address]] [phone] Nisreen Barton MD [address] [place] [address] Social History Tobacco Use Types Packs/Day Years Used Date Smoking Tobacco: Never Assessed Sex and Gender Information Value Date Recorded Sex Assigned at Not on file Gender Identity Not on file Sexual Orientation Not on file documented as of this encounter Plan of Treatment Not on file documented as of this encounter Procedures Procedure Name Priority Date/Time Associated Diagnosis Comments SURGICAL PATHOLOGY Routine 10/28/2017 19 :41 EST documented in this encounter Results * SURGICAL PATHOLOGY (10/28/2017 19:41 EST) Pathology Report: SURGICAL PATHOLOGY REPORT Reports generated via electronic interface contain original data; however they are lacking the format of the original report. Caution should be taken when reading/interpret ing unformatted reports. Name: ? ZAIDA YOUNG ? Accession #: ? [id number] ? : ? 1975 (Age: 42) ??F ? Collect Date: ? 10/28/2017 ? Location: ? [facility] ? Receive Date: ? 10/28/2017 ? Provider: NISREEN BARTON MD Copy to: SNEHA AGUSTIN MD ? Final Pathologic Diagnosis: A. UTERUS, RIGHT FALLOPIAN TUBE, SUPRACERVICAL HYSTERECTOMY AND RIGHT SALPINGECTOMY: - Endometrium: ? - Secretory endometrium. 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 - Serosa: ? - No specific pathologic features. - Right fallopian tubes: - No specific pathologic features. B. FALLOPIAN TUBE, LEFT, SALPINGECTOMY - No specific pathologic features. Document reviewed and electronically signed by: SELENA RUBY MD Report ??Date: 11/04/2017 13:24 By the signature above, the attending physician certifies that he/she has personally conducted a gross and/or microscopic examination of the described specimens and rendered or confirmed the above diagnosis. Specimen(s) Received: A. ??Uterus, supracervical, right fallopian tube B. ??Left fallopian tube Clinical History: Menorrhagia, multiple fibroids, risk reducing salpingectomy, bilateral Gross Description: A. ?Received in formalin labelled with proper patient identification (initials C, S) and uterus, supracervical and right fallopian tube is an aggregate of morcellated uterine tissue (80 g, 12.0 x 10.0 x 4.0 cm). Received separately in the container is a detached and unoriented fimbriated portion of fallopian tube (4.0 cm in length x 0.6 cm in diameter.) ? The uterine serosa is andersen-brown and smooth with focal granularity. The presumed endometrium is andersen-white and grainy and has a thickness of 0.2 cm. The myometrium is andersen-white and homogeneous. Due to the nature of the specimen, no distinct nodules are identified. ? Hide Dyer sections are submitted as follows: BLOCK VALERIO A1-A3- ??presumed endometrium A4-A8- ??payroll representative section of myometrium A9- ??fallopian tube including entire fimbriated end and two payroll representative cross sections B. ?Received in formalin labelled with proper patient identification (initials C, S) and L fallopian tube is a fimbriated fallopian tube (2.0 cm in length x 0.6 in greatest in diameter), without associated ovary. ??The serosa is andersen-purple and smooth. ??Sectioning reveals an unremarkable cut surface with a pinpoint lumen throughout. ??Entire fimbriated end and two payroll representative cross sections are submitted in B1. Dr. Sandoval 10/29/2017 2:15 PM End of Report [facility] 10/28/2017 19:4 1 EST 10/28/2017 19:41 EST Nisreen Barton MD PATHOLOGY ORDERABLES [facility] [address] [place] [address] documented in this encounter Visit Diagnoses Not on filedocumented in this encounter Care Teams Fire Alarm Dispatcher Relationship Specialty Start Date End Date Sneha Agustin MD [address] [place] [address] PCP - General 08/06/11 documented as of this encounter
--- OUTSIDE RECORDS SUMMARY | 2024-06-08 00:59 | XMS_ITS | Encounter Summary ---
Author Organization [facility] Address [address] [place] [address] Care Team Providers Care Interior Decorator Name Role Phone Unavailable Primary Care Provider Unavailabl e Encounter Details Date Type Department Care Team (Late st Contact Info) Description 03/14/2005 Results Only [facility] - [facility] conversion [address] [place] [address] Walker Love MD [address] [place], [place] [id number] Social History Tobacco Use Types Packs/Day Years Used Date Smoking Tobacco: Never Assessed Sex and Gender Information Value Date Recorded Sex Assigned at Not on file Gender Identity Not on file Sexual Orientation Not on file documented as of this encounter Plan of Treatment Not on file documented as of this encounter Procedures Procedure Name Priority Date/Time Associated Diagnosis Comments CYTOPATHOLOGY Routine 03/14/2005 0:00 EDT documented in this encounter Results * CYTOPATHOLOGY (03/14/2005 0:00 EDT) Pathology Report: CYTOPATHOLOGY REPORT Reports generated via electronic interface contain original data; however they are lacking the format of the original report. Caution should be taken when reading/interpreti ng unformatted reports. Name: ? ZAIDA YOUNG ? Accession #: ? [id number] : ? 1975 (Age: 29) ??F ?Collect Date: ? 03/14/2005 Location: ? [facility] ? Receive Date: ? 03/17/2005 Provider: ?WALKER LOVE MD Copy to: ? Specimen/Source: ?ThinPrep Pap Test, Cervix/Endocervix Last Menstrual Period: ? 03/06/05 Other: ? HPVA - HPV testing requested if ASC-US on the current ThinPrep Pap test. ? SPECIMEN ADEQUACY ? Satisfactory for Evaluation - transformation zone component present GENERAL CATEGORIZATION ? Negative for Intraepithelial Lesion or Malignancy INTERPRETATION ? Shift in shahida present suggestive of bacterial vaginosis. ? Document reviewed and electronically signed by: ? KATHRIN Kurtz(ASCP) ? Report Date: ??03/24/2005 10:15 End of Report [facility] 03/14/2005 03/17/2005 Walker Love MD PATHOLOGY ORDERABLES [facility] [address] [place] [address] documented in this encounter Visit Diagnoses Not on filedocumented in this encounter
--- OUTSIDE RECORDS SUMMARY | 2024-06-08 00:59 | XMS_ITS | Encounter Summary ---
Author Organization [facility] Address [address] [place] [address] Care Team Providers Care Cook Barbecue Name Role Phone Unavailable Primary Care Provider Unavailabl e Encounter Details Date Type Department Care Team (Late st Contact Info) Description 05/25/2008 Before PRISM Converted Visit (Maple) [facility] - Maple conversion [address] [place] [address] Sneha Agustin MD [address] [place], [place] [address] Social History Tobacco Use Types Packs/Day Years Used Date Smoking Tobacco: Never Assessed Sex and Gender Information Value Date Recorded Sex Assigned at Not on file Gender Identity Not on file Sexual Orientation Not on file documented as of this encounter Plan of Treatment Not on file documented as of this encounter Procedures Procedure Name Priority Date/Time Associated Diagnosis Comments SURGICAL PATHOLOGY Routine 05/25/2008 0:00 EDT documented in this encounter Results * SURGICAL PATHOLOGY (05/25/2008 0:00 EDT) Pathology Report: SURGICAL PATHOLOGY REPORT ? Reports generated via electronic interface contain original data; ? however they are lacking the format of the original report. ? Caution should be taken when reading/interpreti ng unformatted reports. ? Name: ? YOUNG, ZAIDA ? Accession #: ? [id number] ? : ? 1975 (Age: 32) ??F ? Collect Date: ? 05/25/2008 ? Location: ? [facility] ? Receive Date: ? 05/26/2008 ? Provider: SNEHA BERRIAN MD ? Copy to: ELODIA READY MD ? Final Pathologic Diagnosis: ? Skin of leg, right lower, punch biopsy: ? - Hemangioma. ? Microscopic Description: ? There is a dome-shaped papule formed by a proliferation of small vascular ?? channels that has a lobular architecture. ??The vessels are lined by an ? attenuated endothelium. ??Some of the vessels are congested. ??The overlying ? epidermis has a diminished rete ridge pattern. ??(Dr. Morris)/mpl ? Document reviewed and electronically signed by: ? Rashmi Morris MD ? Report ??Date: 05/29/2008 14:40 ? By the signature above, the attending physician certifies that he/she has ? personally conducted a gross and/or microscopic examination of the described ? specimens and rendered or confirmed the above diagnosis. ? Specimen(s) Received: ? 3.5 mm punch bx lesion R lower leg ? Clinical History: ? 3-4 mm, red, raised, gets caught on things ? Gross Description: ? Received in formalin labelled Young and right lower leg lesion is a ?? punch biopsy of a andersen papule which measures 0.3 cm in diameter by 0.2 cm in ? thickness. ??The specimen is submitted intact in one cassette. ??(Dr. Lucero/miquelk ? End of Report ? [facility] 05/25/2008 05/26/2008 12: 18 EDT Sneha Agustin MD PATHOLOGY ORDERABLES [facility] [address] [place] [address] documented in this encounter Visit Diagnoses Not on filedocumented in this encounter
--- OUTSIDE RECORDS SUMMARY | 2024-06-08 00:59 | XMS_ITS | Clinical Summary ---
Author Organization [facility] Address [facility] [place] [address] Care Team Providers Care Certified Prosthetist/Orthotist Name Role Phone Sneha Agustin MD Primary Care Provider [phone] Allergies Active Allergy Reactions Criticality Noted Date Comments Amoxicillin-Pot Clavulanate Hives 07/25/20 Cefaclor Anaphylaxis High 07/25/2020 Penicillins Hives 07/25/2020 Sulfa (Sulfonamide Antibiotics) Hives 07/10 Medications Medication Sig Dispensed Refills Start Date End Date Status multivitamin (THERAGRAN) Tablet Take 1 tablet by mouth daily. Active ergocalciferol, vitamin D2, (VITAMIN D ORAL) Take by mouth. Active magnesium 250 mg Tablet Take by mouth. Active ZINC ORAL Take by mouth. Active fish oil-omega-3 fatty acids 1,000 mg Capsule Take 2 g by mouth daily. Active ASHWAGANDHA ROOT EXTRACT,BULK, MISC by [email or web address].(Non-Drug; Combo Route) route daily. Active traZODone (Desyrel) 50 mg Tablet Take 25 mg by mouth nightly. Active Active Problems No known active problems Social History Tobacco Use Types Packs/Day Years Used Date Smoking Tobacco: Former Cigarettes Q uit: 02/22/2010 Smokeless Tobacco: Never Sex and Gender Information Value Date Recorded Sex Assigned at Not on file Gender Identity Not on file Sexual Orientation Not on file Plan of Treatment Health Maintenance Due Date Last Done Comments CT Colonography 1975 Colonoscopy 1975 Colorectal Cancer Screening 1975 FIT DNA 1975 FIT 1975 Sigmoidoscopy (10 year) with FIT yearly 1975 Sigmoidoscopy 1975 HIV screen 1991 Hepatitis C Screening 1991 Hepatitis B vaccine (0-59 yrs) (1) 1992 Tdap adult 1992 Tetanus vaccine 1992 HPV test 2003 PAP Smear 2003 Breast Cancer Share Decision Needed 2013 Breast Cancer screening 2013 Covid-19 Vaccine ( - 2022- season) 2023 Zoster vaccine (1 of 2) 2023 Influenza (Flu) vaccine (1 o f 1 - Influenza standard series) 07/10/2024 Care Teams Certified Prosthetist/Orthotist Relationship Specialty Start Date End Date Sneha Agustin MD [address] [place] [address] PCP - General Family Medicine 07/18/19
--- OUTSIDE RECORDS SUMMARY | 2024-06-08 00:59 | XMS_ITS | Encounter Summary ---
Author Organization [facility] Address [address] [place] [address] Care Team Providers Care Dianetic Counselor Name Role Phone Sneha Agustin MD Primary Care Provider [phone] Encounter Details Date Type Department Care Team (Late st Contact Info) Description 01/12/[address] [facility] Laboratory Services - [facility] ([facility] [address] [place] [address] Annabel Cash MD [address] [place] [address],[address] [place] [address] Social History Tobacco Use Types Packs/Day Years Used Date Smoking Tobacco: Never Assessed Sex and Gender Information Value Date Recorded Sex Assigned at Not on file Gender Identity Not on file Sexual Orientation Not on file documented as of this encounter Plan of Treatment Not on file documented as of this encounter Procedures Procedure Name Priority Date/Time Associated Diagnosis Comments PAP TEST- RESULT ONLY Routine 01/12/2012 0:00 EST documented in this encounter Results * PAP TEST- RESULT ONLY (01/12/2012 0:00 EST) Pathology Report: CYTOPATHOLOGY REPORT Reports generated via electronic interface contain original data; however they are lacking the format of the original report. Caution should be taken when reading/interpreti ng unformatted reports. Name: ? ZAIDA YOUNG ? Accession #: ? [id number] : ? 1975 (Age: 36) ??F ?Collect Date: ? 01/12/2012 Location: ? [facility] ? Receive Date: ? 01/13/2012 Provider: ?ANNABEL CASH MD Copy to: ?SNEHA AGUSTIN MD ? Specimen/Source: ?Pap Test, Cervix/Endocervix, ThinPrep Imaging System with manual evaluation Last Menstrual Period: ? 12/26/11 Treatment History: ? LEEP: hx 1994 re cancerious ? SPECIMEN ADEQUACY ? Satisfactory for Evaluation - transformation zone component present GENERAL CATEGORIZATION ? Negative for Intraepithelial Lesion or Malignancy ? Document reviewed and electronically signed by: ? KATHRIN Solano(ASCP) ? Report Date: ??01/14/2012 16:00 End of Report [facility] 01/12/2012 01/13/2012 Annabel Cash MD PATHOLOGY ORDERABLES Performing Organization Address City/State/[facility] Co de Phone Number [facility] [address] [place] [address] documented in this encounter Visit Diagnoses Not on filedocumented in this encounter Care Teams Dianetic Counselor Relationship Specialty Start Date End Date Sneha Agustin MD [address] [place] [address] PCP - General 08/06/11 documented as of this encounter
--- OUTSIDE RECORDS SUMMARY | 2024-06-08 00:59 | XMS_ITS | Encounter Summary ---
Author Organization [facility] Address [address] [place] [address] Care Team Providers Care Reservation Sales Agent Name Role Phone Sneha Agustin MD Primary Care Provider Encounter Details Date Type Department Care Team (Late st Contact Info) Description 08/15/2011 Results Only [facility] Laboratory Services - [facility] ([facility]) [address] [place] [address] Sneha Agustin MD [address] [place], [place] [id number] Social History Tobacco Use Types Packs/Day Years Used Date Smoking Tobacco: Never Assessed Sex and Gender Information Value Date Recorded Sex Assigned at Not on file Gender Identity Not on file Sexual Orientation Not on file documented as of this encounter Plan of Treatment Not on file documented as of this encounter Procedures Procedure Name Priority Date/Time Associated Diagnosis Comments SURGICAL PATHOLOGY Routine 08/15/2011 0:00 EDT documented in this encounter Results * SURGICAL PATHOLOGY (08/15/2011 0:00 EDT) Pathology Report: SURGICAL PATHOLOGY REPORT Reports generated via electronic interface contain original data; however they are lacking the format of the original report. Caution should be taken when reading/interpreti ng unformatted reports. Name: ? ZAIDA YOUNG ? Accession #: ? [id number] ? : ? 1975 (Age: 36) ??F ? Collect Date: ? 08/15/2011 ? Location: ? [facility] ? Receive Date: ? 2011 ? Provider: SNEHA AGUSTIN MD Copy to: ? Final Pathologic Diagnosis: ? Skin, site not further specified, punch biopsy: 1. ??Melanocytic nevus, intradermal type. ? - Nevus extends focally to peripheral edge of punch biopsy specimen. Microscopic Description: ? Sections are of a papule with mild epidermal hyperplasia and hyperkeratosis. ??There is a proliferation of melanocytes within the dermis. ??The proliferation consists of nests, cords, and strands that diminish in size with descent into the dermis. ??The melanocytes are slightly enlarged but generally have round-oval nuclei and a moderate amount of cytoplasm. ??The melanocytes show sewer connector maturation. ??(Dr. Stover)/[facility] Document reviewed and electronically signed by: JESSICA STOVER MD Report ??Date: 08/18/2011 16:08 By the signature above, the attending physician certifies that he/she has personally conducted a gross and/or microscopic examination of the described specimens and rendered or confirmed the above diagnosis. Specimen(s) Received: ? 8.0 mm punch biopsy Clinical History: ? 6.0 ??7.0 mm raised, light brown nevus ??more recently has gotten raised + irritated Gross Description: ? Received in formalin labelled Young, Zaida and skin lesion 8.0 mm punch bx is an ovoid punch biopsy of andersen-white skin measuring 0.8 x 0.7 cm in diameter and 0.5 cm in thickness. ??There is a central 0.3 x 0.2 by less than 0.1 cm irregular andersen-brown cobblestoned papule. ??The specimen is trisected and entirely submitted in a single cassette. ??(Yazmin Preciado)/[facility] End of Report [facility] 08/15/2011 2011 10: 10 EDT Sneha Agustin MD PATHOLOGY ORDERABLES [facility] [address] [place] [address] documented in this encounter Visit Diagnoses Not on filedocumented in this encounter Care Teams Reservation Sales Agent Relationship Specialty Start Date End Date Sneha Agustin MD [address] [place] [address] PCP - General 08/06/11 documented as of this encounter
--- OUTSIDE RECORDS SUMMARY | 2024-06-08 00:59 | XMS_ITS | Encounter Summary ---
Author Organization [facility] Address [address] [place] [address] Care Team Providers Care Liner Helper Name Role Phone Sneha Agustin MD Primary Care Provider Encounter Details Date Type Department Care Team (Latest Contact Info) Description 07/23/[address] [facility] Pathology & Laboratory Medicine - [facility] [address] [place] [address] Sneha Agustin MD [address] [place] [address] Encounter for gynecological examination (general) (routine) without abnormal findings Social History Tobacco Use Types Packs/Day Years Used Date Smoking Tobacco: Never Assessed Interpersonal Safety Answer Date Record ed Physically Hurt Never 06/10/2020 Verbally Threaten Not on file 06/10/2020 Sex and Gender Information Value Date Recorded Sex Assigned at Not on file Gender Identity Not on file Sexual Orientation Not on file documented as of this encounter Plan of Treatment Scheduled Orders Name Type Priority Associated Diagnoses Orde r Schedule PAP TEST Pathology Today Encounter for gynecological examination (general) (routine) without abnormal findings Ordered: 07/23/2022 documented as of this encounter Visit Diagnoses Diagnosis Encounter for gynecological examination (general) (routine) without abnormal findings documented in this encounter Care Teams Liner Helper Relationship Specialty Start Date End Date Sneha Agustin MD [address] [place] [address] PCP - General 08/06/11 documented as of this encounter
--- OUTSIDE RECORDS SUMMARY | 2024-06-08 00:59 | XMS_ITS | Encounter Summary ---
Author Organization [facility] Address [address] [place] [address] Care Team Providers Care Roller Coaster Operator Name Role Phone Unavailable Primary Care Provider Unavailabl e Encounter Details Date Type Department Care Team (Latest Contact Info) Description 12/16/2004 9:16 EST - 12/17/2004 11:59 EST Hospital Encounter [facility] Neurosurgery Unit [address] [place] [address] Benigno Child MD Discharge Disposition: Home or Self Care Social History Tobacco Use Types Packs/Day Years Used Date Smoking Tobacco: Never Assessed Sex and Gender Information Value Date Recorded Sex Assigned at Not on file Gender Identity Not on file Sexual Orientation Not on file documented as of this encounter Discharge Disposition Disposition Code Departure Means Destination Home or Self Care documented in this encounter Plan of Treatment Not on file documented as of this encounter Visit Diagnoses Not on filedocumented in this encounter
--- OUTSIDE RECORDS SUMMARY | 2024-06-08 00:59 | XMS_ITS | Encounter Summary ---
Author Organization [facility] Address [address] [place] [address] Care Team Providers Care Commercial Hvac Technician Name Role Phone Unavailable Primary Care Provider Unavailabl e Encounter Details Date Type Department Care Team (Late st Contact Info) Description 04/30/[address] [facility] - Maple conversion [address] [place] [address] Frankie Mcpherson MD [address] [facility] [address] [place] [address] Social History Tobacco Use Types Packs/Day Years Used Date Smoking Tobacco: Never Assessed Sex and Gender Information Value Date Recorded Sex Assigned at Not on file Gender Identity Not on file Sexual Orientation Not on file documented as of this encounter Plan of Treatment Not on file documented as of this encounter Procedures Procedure Name Priority Date/Time Associated Diagnosis Comments SURGICAL PATHOLOGY Routine 04/30/2007 0:00 EDT documented in this encounter Results * SURGICAL PATHOLOGY (04/30/2007 0:00 EDT) Pathology Report: SURGICAL PATHOLOGY REPORT Reports generated via electronic interface contain original data; however they are lacking the format of the original report. Caution should be taken when reading/interpreti ng unformatted reports. Name: ? ZAIDA YOUNG ? Accession #: ? [id number] ? : ? 1975 (Age: 31) ??F ? Collect Date: ? 04/30/2007 ? Location: ? [facility] ? Receive Date: ? 05/01/2007 ? Provider: FRANKIE MCPHERSON MD Copy to: ELODIA MASTERSON MD ? Final Pathologic Diagnosis: A. ?Endocervix, curettings: 1. ?Endocervical epithelium with squamous metaplasia and inflammation. 2. ? Fragment of lower uterine segment. B. ?Cervix, biopsy: 1. ?Polypoid fragments of benign endocervical mucosa. C. ?Endometrium, curettings: 1. ?Inactive endometrium. 2. ? No evidence of hyperplasia or malignancy seen. Document reviewed and electronically signed by: Rony Yan MD Report ??Date: 05/03/2007 14:47 By the signature above, the attending physician certifies that he/she has personally conducted a gross and/or microscopic examination of the described specimens and rendered or confirmed the above diagnosis. Specimen(s) Received: A. ?Curettings cervical (#1) B. ? Cervical punch bx (#2) C. ? Endometrial curettings (#3) Clinical History: ? D&C hysteroscopy & ex biopsies. A. Menstrual irregularity not responding to hormone therapy; B. polypoid cervix-bleeding with contact Gross Description: ? Received in formalin labelled Young and cervical curettings is a 2.2 x 0.8 x 0.8 cm aggregate of andersen - brown soft tissue fragments admixed with a moderate amount of andersen serous fluid. ??The specimen is entirely submitted as (A) following filtration. Received in formalin labelled Young and cervical punch bx are multiple andersen-white soft tissue fragments admixed with clear mucous which has an overall measurement of 1.5 x 1.1 x 0.2 cm in aggregate. ??The specimen is entirely submitted as (B). Received in formalin labelled Young and endometrial curettings is a 4.0 x 2.5 x 0.8 cm aggregate of andersen-brown soft tissue fragments admixed with a moderate amount of clotted blood. ??The specimen is entirely submitted as (C1), (C2) following filtration. (Dr. Gee-VARGHESE)/mpl End of Report [facility] 04/30/2007 05/01/2007 9:5 1 EDT Frankie Mcpherson MD PATHOLOGY ORDERABLES [facility] [address] [place] [address] documented in this encounter Visit Diagnoses Not on filedocumented in this encounter
--- OUTSIDE RECORDS SUMMARY | 2024-06-08 00:59 | XMS_ITS | Encounter Summary ---
Author Organization [facility] Address [address] [place] [address] Care Team Providers Care Sr Technical Sales Consultant Name Role Phone Unavailable Primary Care Provider Unavailabl e Encounter Details Date Type Department Care Team (Late st Contact Info) Description 10/05/2007 Results Only [facility] - Maple conversion [address] [place] [address] Frankie Mcpherson MD [address] [facility] [address] [place] [address] Social History Tobacco Use Types [...] Priority Date/Time Associated Diagnosis Comments CYTOPATHOLOGY Routine 10/05/2007 0:00 EST documented in this encounter Results * CYTOPATHOLOGY (10/05/2007 0:00 EST) Pathology Report: CYTOPATHOLOGY REPORT Reports generated via electronic interface contain original data; however they are lacking the format of the original report. Caution should be taken when reading/interpreti ng unformatted reports. Name: ? ZAIDA YOUNG ? Accession #: ? [id number] : ? 1975 (Age: 32) ??F ?Collect Date: ? 10/05/2007 Location: ? [facility] ? Receive Date: ? 10/06/2007 Provider: ?FRANKIE MCPHERSON MD Copy to: ? Specimen/Source: ?ThinPrep Pap Test, Cervix/Endocervix, processed on [employer] ThinPrep Imaging System, with manual evaluation Last Menstrual Period: ? 08/28/07 Menstrual/Pregnanc y Status: ? Menorrhagia Hormonal/Contracep tive Status: ? Yes: Depo Lupron IM ? SPECIMEN ADEQUACY ? Satisfactory for Evaluation - transformation zone component present GENERAL CATEGORIZATION ? Negative for Intraepithelial Lesion or Malignancy ? Document reviewed and electronically signed by: ? KATHRIN Kurtz(ASCP) ? Report Date: ??10/07/2007 12:40 End of Report SHAYAN GARZA 10/05/2007 10/06/2007 Frankie Mcpherson MD PATHOLOGY ORDERABLES Performing Organization Address City/State/[facility] Co de Phone Number SHAYAN GARZA [address] [place] [address] documented in this encounter Visit Diagnoses Not on filedocumented in this encounter
--- OUTSIDE RECORDS SUMMARY | 2024-06-08 00:59 | XMS_ITS | Encounter Summary ---
Author Organization [facility] Address [address] [place] [address] Care Team Providers Care Warehouse Operations Manager Name Role Phone Unavailable Primary Care Provider Unavailabl e Encounter Details Date Type Department Care Team (Late st Contact Info) Description 08/05/2006 Results Only [facility] - Maple conversion [address] [place] [address] Walker Love MD [address] [place], [place] [id number] Social History Tobacco Use Types Packs/Day Years Used Date Smoking Tobacco: Never Assessed Sex and Gender Information Value Date Recorded Sex Assigned at Not on file Gender Identity Not on file Sexual Orientation Not on file documented as of this encounter Plan of Treatment Not on file documented as of this encounter Procedures Procedure Name Priority Date/Time Associated Diagnosis Comments CYTOPATHOLOGY Routine 08/05/2006 0:00 EDT documented in this encounter Results * CYTOPATHOLOGY (08/05/2006 0:00 EDT) Pathology Report: CYTOPATHOLOGY REPORT Reports generated via electronic interface contain original data; however they are lacking the format of the original report. Caution should be taken when reading/interpreti ng unformatted reports. Name: ? ZAIDA YOUNG ? Accession #: ? [id number] : ? 1975 (Age: 30) ??F ?Collect Date: ? 08/05/2006 Location: ? [facility] ? Receive Date: ? 08/07/2006 Provider: ?WALKER LOVE MD Copy to: ? Specimen/Source: ?ThinPrep Pap Test, Cervix/Endocervix, processed on [employer] ThinPrep Imaging System, with manual evaluation Last Menstrual Period: ? Other: ? HPVA - HPV testing requested if ASC-US on the current ThinPrep Pap test. ? SPECIMEN ADEQUACY ? Satisfactory for Evaluation - transformation zone component present GENERAL CATEGORIZATION ? Negative for Intraepithelial Lesion or Malignancy ? Document reviewed and electronically signed by: ? Reny Marie, SCT(ASCP) ? Report Date: ??08/13/2006 08:40 End of Report SHAYAN GARZA 08/05/2006 08/07/2006 Walker Love MD PATHOLOGY ORDERABLES [facility] [address] [place] [address] documented in this encounter Visit Diagnoses Not on filedocumented in this encounter
--- OUTSIDE RECORDS SUMMARY | 2024-06-08 00:59 | XMS_ITS | Encounter Summary ---
Author Organization [facility] Address [address] [place] [address] Care Team Providers Care Litigation Coordinator Name Role Phone Unavailable Primary Care Provider Unavailabl e Encounter Details Date Type Department Care Team (Late st Contact Info) Description 10/25/2009 Orders Only [facility] Laboratory Services - [facility] ([facility]) [address] [place], [place] [address] Cooper Degroot MD [address] [place] [address] Social History Tobacco Use Types Packs/Day Years Used Date Smoking Tobacco: Never Assessed Sex and Gender Information Value Date Recorded Sex Assigned at Not on file Gender Identity Not on file Sexual Orientation Not on file documented as of this encounter Plan of Treatment Not on file documented as of this encounter Procedures Procedure Name Priority Date/Time Associated Diagnosis Comments CYTOPATHOLOGY Routine 10/25/2009 0:00 EST documented in this encounter Results * CYTOPATHOLOGY (10/25/2009 0:00 EST) Pathology Report: CYTOPATHOLOGY REPORT ? Reports generated via electronic interface contain original data; ? however they are lacking the format of the original report. ? Caution should be taken when reading/interpreti ng unformatted reports. ? Name: ? ZAIDA YOUNG ? Accession #: ? [id number] ? : ? 1975 (Age: 34) ??F ?Collect Date: ? 10/25/2009 ? Location: ? [facility] ? Receive Date: ? 10/26/2009 ? Provider: ?COOPER DEGROOT MD ? Copy to: ? Specimen/Source: ?Pap Test, Cervix/Endocervix, ThinPrep Imaging System ? with manual evaluation ? Last Menstrual Period: ? 11/15/09 ? Other: ? HPVA - HPV testing requested if ASC-US on the current ThinPrep Pap test. ? SPECIMEN ADEQUACY ? Satisfactory for Evaluation ? - transformation zone component present ? GENERAL CATEGORIZATION ? Negative for Intraepithelial Lesion or Malignancy ? Document reviewed and electronically signed by: ? Lynan Jasvir, CT(ASCP) ? Report Date: ??10/29/2009 15:25 ? End of Report ? SHAYAN GARZA 10/25/2009 10/26/2009 Cooper Degroot MD PATHOLOGY ORDERABLES [facility] [address] [place] [address] documented in this encounter Visit Diagnoses Not on filedocumented in this encounter
--- OUTSIDE RECORDS SUMMARY | 2024-06-08 00:59 | XMS_ITS | Encounter Summary ---
Author Organization [facility] Address [address] [place] [address] Care Team Providers Care Malt House Loader Name Role Phone Unavailable Primary Care Provider Unavailabl e Encounter Details Date Type Department Care Team (Late st Contact Info) Description 10/31/2008 Before PRISM Converted Visit (Maple) [facility] - Maple conversion [address] [place] [address] Sneha Agustin MD [address] [place], [place] [address] Social History Tobacco Use Types Packs/Day Years Used Date Smoking Tobacco: Never Assessed Sex and Gender Information Value Date Recorded Sex Assigned at Not on file Gender Identity Not on file Sexual Orientation Not on file documented as of this encounter Plan of Treatment Not on file documented as of this encounter Procedures Procedure Name Priority Date/Time Associated Diagnosis Comments SURGICAL PATHOLOGY Routine 10/31/2008 0:00 EST documented in this encounter Results * SURGICAL PATHOLOGY (10/31/2008 0:00 EST) Pathology Report: SURGICAL PATHOLOGY REPORT ? Reports generated via electronic interface contain original data; ? however they are lacking the format of the original report. ? Caution should be taken when reading/interpreting unformatted reports. ? Name: ? YOUNG, ZAIDA ? Accession #: ? [id number] ? : ? 1975 (Age: 33) ??F ? Collect Date: ? 10/31/2008 ? Location: ? [facility] ? Receive Date: ? 11/03/2008 ? Provider: SNEHA BERRIAN MD ? Copy to: ? Final Pathologic Diagnosis: ? Skin of arm, left upper, shave biopsy: ? 1. ?Melanocytic nevus, intradermal type, with desmoplastic stroma. ??See comment. ? - Nevus associated with epidermal necrosis and inflammation. ? - Nevus extends to peripheral edge and base of shave biopsy specimen. ? Comment: ? Multiple sections of the biopsy were reviewed. ??The biopsy consists of a ?? dermal proliferation of polygonal cells that morphologically and ? immunophenotypically (S-100 protein positivity) are consistent with melanocytes. There are some larger cells raising the possibility of a Spitz nevus. ??The ? proliferation is associated with a desmoplastic stromal response and epidermal ?? changes suggestive of trauma. ??Features supporting the benignity of the lesion ?? include the small size, relative symmetry, features of maturation, lack of an ?? intraepidermal component, and absence of mitotic figures. ??The lesion is ? transected at the peripheral edge and base of the biopsy specimen. ??Therefore, ?? conservative re-excision of the lesion is recommended. ??(Dr. Stover)/kmm ? Microscopic Description: ? Sections consist of a bisected shave biopsy of skin with a slightly ? eccentric papule. ??The stratum corneum has mild orthohyperkeratosis. ??The ? epidermis at the summit of the papule is mildly hyperplastic. ??There is ? superficial necrosis with exocytosis of inflammatory cells. ??In some of the ? sections, the epidermis is fragmented in the area of necrosis. ??Junctional ? melanocytes appear normal in number and morphology. ??Within the dermis, there is a proliferation of polygonal cells that appear to be melanocytic. ??The cells are arranged in loose clusters but primarily as individual units. ??In general, the ?? cells show features of maturation with descent (dimunition in size). ??The cells have enlarged nuclei with slightly irregular contours and dense chromatin. ??Some have intranuclear cytoplasmic inclusions. ??Mitotic figures are not identified. ?? Near the base of the biopsy, the cells are invested by thick bundles of ? collagen. ??There is a moderately dense perivascular lymphocytic infiltrate. ? Additional, deeper sections show similar features. ??Immunohistochemical staining was performed on this case to further characterize the lesion. ??Positive and ? negative controls stained appropriately. ??(Dr. Stover)/[facility] ? Antibody (Clone) ? Result ? S-100 protein AEC (4C4.9, [facility]) ? Immunoreactivity of ? polygonal cells within dermis. ? CD68 (KP1)(KP1, [facility]) ?Immunoreactivity of occasional ? polygonal dermal ? cells as well as more intense ? immunoreactivity of ? spindle cells within dermis. ? [place]-1 (Melan-A)(A103, [facility]) ? Weak immunoreactivity of ?? occasional dermal ?polygonal cells (sections incomplete). ? NOTE: ??One or more of the reagents used in immunohistochemical testing in this case may not have been cleared or approved by the U.S. Food and Drug ? Administration (FDA). ??The FDA has determined that such clearance or approval is not necessary. ??These tests are used for clinical purposes. ??They should not be regarded as investigational or for research. ??These reagents' ??performance ? characteristics have been determined by [facility]. ??This ? laboratory is certified under the Clinical Laboratory Improvement Amendments of 1988 (CLIA-88) as qualified to perform high complexity clinical laboratory ? testing. ? Document reviewed and electronically signed by: ? Marylou Stover, ? Report ??Date: 11/08/2008 16:03 ? By the signature above, the attending physician certifies that he/she has ? personally conducted a gross and/or microscopic examination of the described ? specimens and rendered or confirmed the above diagnosis. ? Specimen(s) Received: ? L upper arm ? Clinical History: ? Approximately 5 mm clear, raised lesion; pt concerned due to FH of cancer ?? (melanoma) ? Gross Description: ? Received in formalin labelled Young and L upper arm is a 0.5 x 0.3 x 0.2 cm shave biopsy of andersen skin. ??Bisected and submitted in one cassette. ??(Dr. Sebastian)/kmm ? End of Report ? SHAYAN GARZA 10/31/2008 11/03/2008 11: 26 EST Sneha Agustin MD PATHOLOGY ORDERABLES [facility] [address] [place] [address] documented in this encounter Visit Diagnoses Not on filedocumented in this encounter
--- OUTSIDE RECORDS SUMMARY | 2024-06-08 00:59 | XMS_ITS | Encounter Summary ---
Author Organization [facility] Address [address] [place] [address] Care Team Providers Care Assistant Auto Center Manager Name Role Phone Sneha Agustin MD Primary Care Provider [phone] Encounter Details Date Type Department Care Team (Late st Contact Info) Description 10/05/2017 Results Only [facility]- [facility] [phone] Nisreen Barton MD [address] [place] [address] Social History Tobacco Use Types Packs/Day Years [...] Diagnosis Comments PAP TEST- RESULT ONLY Routine 10/05/2017 0:00 EST documented in this encounter Results * PAP TEST- RESULT ONLY (10/05/2017 0:00 EST) Pathology Report: CYTOPATHOLOGY REPORT Reports generated via electronic interface contain original data; however they are lacking the format of the original report. Caution should be taken when reading/interpreti ng unformatted reports. Name: ? ZAIDA YOUNG ? Accession #: ? [id number] ? : ? 1975 (Age: 42) ??F ?Collect Date: ? 10/05/2017 ? Location: ? [facility] ? Receive Date: ? 10/06/2017 ? Provider: NISREEN BARTON MD Copy to: SNEHA AGUSTIN MD ? Final Report SPECIMEN ADEQUACY ? Satisfactory for Evaluation - transformation zone component present GENERAL CATEGORIZATION ? Negative for Intraepithelial Lesion or Malignancy ?? Treatment History: LEEP: Age 19 Infection History: Neg for HPV: 2014 Other: Previous NIL Pap(s): 2014 Specimen/Source: ??Pap Test, Cervix/Endocervix, ThinPrep Imaging System with manual evaluation Document reviewed and electronically signed by: ? Viri Blackburn, KATHRIN(ASCP)(IAC) ? Report ??Date: 10/14/2017 14:48 HPV with Pap Test ? Date Ordered: ? 10/14/2017 ? Status: ?? Signed Out ?Date Complete: ? 10/16/2017 ? By: ??System Interface ? Date Reported: ? 10/16/2017 ? Interpretation RESULT: Negative for HPV. No E6 or E7 mRNA is detected from HPV types 16,18,31,33,35, 39,45,51,52,56,58, 59,66, and 68 by trolley worker mediated amplification. Comments Document reviewed and electronically signed by: ? System Interface ? Report date: 10/16/2017 By the signature above, the attending physician certifies that he/she has personally conducted a gross and/or microscopic examination of the described specimens and rendered or confirmed the above diagnosis. End of Report [facility] 10/05/2017 10/06/2017 Nisreen Bartno MD PATHOLOGY ORDERABLES [facility] [address] [place] [address] documented in this encounter Visit Diagnoses Not on filedocumented in this encounter Care Teams Assistant Auto Center Manager Relationship Specialty Start Date End Date Sneha Agustin MD [address] [place] [address] PCP - General 08/06/11 documented as of this encounter
--- OUTSIDE RECORDS SUMMARY | 2024-06-08 00:59 | XMS_ITS | Encounter Summary ---
Author Organization [facility] Address [address] [place] [address] Care Team Providers Care Emergency Dept Tech Name Role Phone Sneha Agustin MD Primary Care Provider Encounter Details Date Type Department Care Team (Late st Contact Info) Description 12/11/2023 Lab Requisition [facility] Pathology & Laboratory Medicine - [address] [address] Cuate Munroe MD [address] [place] [address], [address] [place] [address] Encounter for screening for malignant neoplasm of colon Social History Tobacco Use Types Packs/Day Years [...] Priority Date/Time Associated Diagnosis Comments SURGICAL PATHOLOGY Today 12/11/2023 9:39 EST Encounter for screening for malignant neoplasm of colon documented in this encounter Results * SURGICAL PATHOLOGY (12/11/2023 9:39 EST) Note to Patient The following pathology results have been interpreted by your pathologist and may be available to you before your health provider has had the opportunity to review them. Please allow time for your provider to receive these results and explore management options, if applicable. 12/14/2023 15:14 EST [facility] Final Diagnosis A. RECTUM, POLYP, BIOPSY: - Hyperplastic polyp. B. COLON, POLYP, 75 CM, BIOPSY: - Tubular adenoma. 12/14/2023 15:14 [facility] Attestation By the signature below, the attending physician certifies that they have 1) personally conducted a gross and/or microscopic examination of the described specimen(s), and/or personally interpreted the results of laboratory testing of the described specimen(s), and 2) personally rendered or confirmed the above diagnosis. 12/14/2023 15:14 [facility] at 1514 Clinical History Screening 12/14/2023 15:14 [facility] Gross Description A. Received in formalin labelled with proper patient identification (initials C, S) and rectal polyp is a single andersen focally brown tissue fragment (0.3 x 0.2 x 0.2 cm). Entirely submitted in A1. B. Received in formalin labelled with proper patient identification (initials C, S) and polyp at 75 cm is a single pale andersen focally andersen-brown tissue fragment (0.5 x 0.3 x 0.1 cm). Entirely submitted in B1. Echo Polaabhishek 12/12/2023 11:51 12/14/2023 15:14 [facility] Performing Lab [facility] 12/14/2023 15:14 [facility] Scanned Images 12/14/2023 15:14 [facility] Tissue COLON STRUCTURE / Unknown 12/11/2023 9:39 EST 12/11/2023 17:17 EST Tissue specimen (specimen) COLON STRUCTURE / Unknown 12/11/2023 9:39 EST 12/11/2023 17:17 EST Cuate Munroe MD PATHOLOGY ORDERABLES [facility] [address] [place] [address] documented in this encounter Visit Diagnoses Diagnosis Encounter for screening for malignant neoplasm of colon Special screening for malignant neoplasms, colon documented in this encounter Care Teams Emergency Dept Tech Relationship Specialty Start Date End Date Sneha Agustin MD [address] [place] [id number] PCP - General 08/06/11 documented as of this encounter
--- OUTSIDE RECORDS SUMMARY | 2024-06-08 00:59 | XMS_ITS | Encounter Summary ---
Author Organization [facility] Address [address] [place] [address] Care Team Providers Care Studio Designer Name Role Phone Sneha Agustin MD Primary Care Provider [phone] Encounter Details Date Type Department Care Team (Latest Contact Info) Description 07/23/[address] [facility] Pathology & Laboratory Medicine - [facility] [address] [place] [address] Sneha Agustin MD [address] [place] [phone] Encounter for gynecological examination (general) (routine) without [...] Name Priority Date/Time Associated Diagnosis Comments PAP TEST Today 07/22/2022 14:00 EDT Encounter for gynecological examination (general) (routine) without abnormal findings HPV DNA DETECTION WITH GENOTYPING, PCR Today 07/22/2022 14:00 EDT Encounter for gynecological examination (general) (routine) without abnormal findings documented in this encounter Results * HUMAN PAPILLOMAVIRUS (HPV) DETECTION-HIGH RISK TYPES (07/22/2022 14:00 EDT) HPV other High Risk types, PCR Negative Negative 08/04/2022 15:19 EDT [facility] Comment:No E6 or E7 mRNA is detected from HPV types 16,18,31,33,35,39,45,51,52,56,58,59,66, and 68 by wrapper cashier mediated amplification. Papanicolaou smear specimen (specimen) CERVIX UTERI STRUCTURE / Unknown 07/22/2022 14:00 EDT 07/31/2022 14:41 EDT Sneha Agustin MD MICROBIOLOGY - GENER AL ORDERABLES [facility] [address] [place] [address] * PAP TEST (07/22/2022 14:00 EDT) Specimens A. Cervix and/or Endocervix , ThinPrep Imaging System with Manual Evaluation 08/04/2022 15:19 [facility] Specimen Adequacy Satisfactory for Evaluation - transformation zone component present 08/04/2022 15:19 [facility] General Categorization Negative for intraepithelial lesion or malignancy 08/04/2022 15:19 [facility] Descriptive Diagnosis Reactive cellular changes associated with inflammation present (includes repair). 08/04/2022 15:19 [facility] Attestation By the signature below, the attending physician certifies that they have personally conducted a gross and/or microscopic examination of the described specimens and rendered or confirmed the above diagnosis. 08/04/2022 15:19 [facility] at 1519 Clinical History See below 08/04/20 15:19 [facility] HPV The result for the Human Papillomavirus (HPV) Detection-High Risk Types is Negative. No E6 or E7 mRNA is detected from HPV types 16,18,31,33,35,39 ,45,51,52,56,58,5 9,66, and 68 by wrapper cashier mediated amplification.Jennifer ting was performed on specimen [id number] and was resulted on 08/04/2022 1517 EDT by GAEL, LAB INSTRUMENT RESULTS IN 08/04/2022 15:19 EDT [facility] Performing Lab [facility] 08/04/2022 15:19 EDT [facility] Scanned Images 08/04/2022 15:19 EDT [facility] Papanicolaou smear specimen (specimen) CERVIX UTERI STRUCTURE / Unknown 07/22/2022 14:00 EDT 07/23/2022 13:55 EDT Sneha Agustin MD PATHOLOGY ORDERABLES [facility] [address] [place] [address] documented in this encounter Visit Diagnoses Diagnosis Encounter for gynecological examination (general) (routine) without abnormal findings documented in this encounter Care Teams Studio Designer Relationship Specialty Start Date End Date Sneha Agustin MD [address] [place] [id number] PCP - General 08/06/11 documented as of this encounter
--- OUTSIDE RECORDS SUMMARY | 2024-06-08 00:59 | XMS_ITS | Encounter Summary ---
Author Organization [facility] Address [address] [place] [address] Care Team Providers Care Senior Construction Project Manager Name Role Phone Sneha Agustin MD Primary Care Provider [phone] Encounter Details Date Type Department Care Team (Late st Contact Info) Description 01/19/2013 Results Only [facility] Laboratory Services - [facility] ([facility]) [address] [place] [address] Annabel Cash MD [address] [place] [address],[address] [place] [address] Social History Tobacco Use Types [...] Diagnosis Comments PAP TEST- RESULT ONLY Routine 01/19/2013 0:00 EDT documented in this encounter Results * PAP TEST- RESULT ONLY (01/19/2013 0:00 EDT) Pathology Report: CYTOPATHOLOGY REPORT Reports generated via electronic interface contain original data; however they are lacking the format of the original report. Caution should be taken when reading/interpreti ng unformatted reports. Name: ? ZAIDA YOUNG ? Accession #: ? [id number] : ? 1975 (Age: 37) ??F ?Collect Date: ? 01/19/2013 Location: ? [facility] ? Receive Date: ? 01/20/2013 Provider: ?ANNABEL CASH MD Copy to: ?SNEHA AGUSTIN MD ? Specimen/Source: ?Pap Test, Cervix/Endocervix, ThinPrep Imaging System with manual evaluation Last Menstrual Period: ? 12/28/12 Previous Gynecologic Pathology: ? HSIL: severe dysplasia Treatment History: ? 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 SPECIMEN ADEQUACY ? Satisfactory for Evaluation - transformation zone component present GENERAL CATEGORIZATION ? Negative for Intraepithelial Lesion or Malignancy ? Document reviewed and electronically signed by: ? Viri Blackburn, CT(ASCP)(IAC) ? Report Date: ??01/24/2013 12:02 End of Report SHAYAN GARZA 01/19/2013 01/20/2013 Annabel Cash MD PATHOLOGY ORDERABLES Performing Organization Address City/State/[facility] Co de Phone Number [facility] [address] [place] [address] documented in this encounter Visit Diagnoses Not on filedocumented in this encounter Care Teams Senior Construction Project Manager Relationship Specialty Start Date End Date Sneha Agustin MD [address] [place] [address] PCP - General 08/06/11 documented as of this encounter
--- OUTSIDE RECORDS SUMMARY | 2024-06-08 00:59 | XMS_ITS | Encounter Summary ---
Author Organization [facility] Address [facility] [address] Care Team Providers Care Spray Pilot Name Role Phone Sneha Agustin MD Primary Care Provider [phone] Reason for Visit * Reason Comments Skin Check Encounter Details Date Type Department Care Team (Late st Contact Info) Description 07/25/2020 2:00 PM EDT [facility] [address] [place] [address] Jo Crews MD [facility] [address] Multiple benign nevi; Seborrheic keratosis; Matos angioma; Telangiectasias; Dermatofibroma; Herpes labialis; Family history of melanoma Social History Tobacco Use Types Packs/Day Years Used Date Smoking Tobacco: Former Cigarettes Q uit: 02/22/2010 Smokeless Tobacco: Never Sex and Gender Information Value Date Recorded Sex Assigned at Not on file Gender Identity Not on file Sexual Orientation Not on file documented as of this encounter Progress Notes * Jo Crews MD - 07/25/2020 2:00 PM EDT DERMATOLOGY OUTPATIENT CLINIC NOTE Date of service: 07/25/2020 Zaida Young : 1975 Provider: Jo Crews MD PROBLEM: Full skin exam SKIN HISTORY: None HPI Zaida Young is a 44 y.o. year old female. Established patient, here today for a full skin exam. She reports a red lesion on the left cheek, first identified about 8 weeks. Asymptomatic. Social History: Self employed - spray foam insulation ?? Family History: Father - Melanoma ADR: Not on File CURRENT MEDICATIONS: Current Outpatient Medications Medication Sig [...] complaints EXAM General: NAD, pleasant, cooperative Skin: #2 (bra and underwear on): Patient was asked to undress to the level of her comfort. Verbalized that the provider's preferenceis for the patient to remove all clothing and that the provider will not examine areas patient elects to keep covered. Patient's decision was to keep bra and underwear on and have the following examined: skin of the scalp, hair, face, ears, neck, chest, abdomen, back, axillae, upper and lower extremities, hands, and feet. #0 (bra and underwear off): Patient was asked to undress to the level of her comfort. Verbalized that the provider's preferenceis for the patient to remove all clothing and that the provider will not examine areas patient elects to keep covered. Patient's decision was to remove bra and underwear for a total body skin exam. This includes examination of the scalp, hair, face, ears, neck, chest, breasts, abdomen, back, axillae, upper and lower extremities, hands, and feet. Genitalia were not examined. Areas of face under mask examined (COVID-19): [x] Yes [] No Significant skin findings: -Trunk and extremities: scattered, 2-6 mm medium brown macules. -Scalp, trunk and extremities: waxy, brown stuck-on papules -Trunk: red dome-shaped papules. -Left cheek: telangiectasias. -Left lateral knee, right benton: firm, pink papules. -Bilateral great toenails: distal subungual oncolysis with mild onychodystrophy. -Lower lip: (2) eroded papules. ASSESSMENT/PLAN Benign-Appearing Nevi - No atypical lesions or [...] call if they become inflamed or irritated. Matos Angiomas - Discussed benign nature of lesions and provided reassurance. No treatment necessary at this time. Telangiectasia(s) - Discussed benign nature of lesion(s). - Briefly discussed the option of treating cosmetically with V-Beam if numerous and/or bothersome to patient. Patient is aware that this is considered a cosmetic procedure and not covered by insurance. Patient quoted $150 for treatment, she will call to schedule if she elects to proceed with cosmetic treatment. Dermatofibroma - Discussed benign nature of lesion and provided reassurance. No treatment necessary. Herpes Labialis - Briefly discussed treating with Acyclovir. Patient will call or discuss with PCP if she elects toproceed with this treatment. Family History of Skin Cancer Melanoma (father), yearly skin exam RTC - 2 years for a full skin exam; sooner if needed. Reminder placed in system to schedule. Instructed patient to call with questions or concerns. Note initiated and routed to physician for review and change by: CLAYTON Grossman I, CLAYTON Grossman, have performed the documentation for this encounter [...] documentation. Jo Crews MD Section of Dermatology [facility] documented in this encounter Plan of Treatment Not on file documented as of this encounter Visit Diagnoses Diagnosis Multiple benign nevi Benign neoplasm of skin, site unspecified Seborrheic keratosis Other seborrheic keratosis Matos angioma Nevus, non-neoplastic Telangiectasias Other and unspecified capillary diseases Dermatofibroma Benign neoplasm of skin, site unspecified Herpes labialis Herpes simplex without mention of complication Family history of melanoma Family history of other specified malignant neoplasm documented in this encounter Care Teams Spray Pilot Relationship Specialty Start Date End Date Sneha Agustin MD [address] [place] [address] PCP - General Family Medicine 07/18/19 documented as of this encounter
--- OUTSIDE RECORDS SUMMARY | 2024-06-08 00:59 | XMS_ITS | Encounter Summary ---
Author Organization [facility] Address [address] [place] [address] Care Team Providers Care Avionics Systems Repairer Name Role Phone Sneha Agustin MD Primary Care Provider [phone] Encounter Details Date Type Department Care Team (Late st Contact Info) Description 08/08/2015 Results Only [facility] [phone] Katia Del Rio MD [address] [place] [address] [place] [address] Social History Tobacco Use Types Packs/Day Years [...] Diagnosis Comments PAP TEST- RESULT ONLY Routine 08/08/2015 0:00 EDT documented in this encounter Results * PAP TEST- RESULT ONLY (08/08/2015 0:00 EDT) Pathology Report: CYTOPATHOLOGY REPORT Reports generated via electronic interface contain original data; however they are lacking the format of the original report. Caution should be taken when reading/interpreti ng unformatted reports. Name: ? ZAIDA YOUNG ? Accession #: ? [id number] ? : ? 1975 (Age: 39) ??F ?Collect Date: ? 08/08/2015 ? Location: ? [facility] ? Receive Date: ? 08/09/2015 ? Provider: KATIA DEL RIO MD Copy to: SNEHA AGUSTIN MD ? Final Report SPECIMEN ADEQUACY ? Satisfactory for Evaluation - transformation zone component present GENERAL CATEGORIZATION ? Negative for Intraepithelial Lesion or Malignancy ?? Specimen/Source: ??Pap Test, Cervix/Endocervix, ThinPrep Imaging System with manual evaluation Document reviewed and electronically signed by: ? KATHRIN Kurtz(ASCP) ? Report ??Date: 08/13/2015 11:53 HPV with Pap Test ? Date Ordered: ? 08/13/2015 ? Status: ?? Signed Out ?Date Complete: ? 08/15/2015 ? By: ??System Interface ? Date Reported: ? 08/15/2015 ? Interpretation RESULT: Negative for HPV. No E6 or E7 mRNA is detected from HPV types 16,18,31,33,35, 39,45,51,52,56,58, 59,66, and 68 by cushion stuffer mediated amplification. Comments Document reviewed and electronically signed by: ? System Interface ? Report date: 08/15/2015 By the signature above, the attending physician certifies that he/she has personally conducted a gross and/or microscopic examination of the described specimens and rendered or confirmed the above diagnosis. End of Report [facility] 08/08/2015 08/09/2015 Katia Del Rio MD PATHOLOGY ORDERABLES [facility] [address] [place] [address] documented in this encounter Visit Diagnoses Not on filedocumented in this encounter Care Teams Avionics Systems Repairer Relationship Specialty Start Date End Date Sneha Agustin MD [address] [place] [address] PCP - General 08/06/11 documented as of this encounter
--- OUTSIDE RECORDS SUMMARY | 2024-06-08 00:59 | XMS_ITS | Referral Summary ---
Author Organization [facility] Address [address] [place] [address] Care Team Providers Care Hotel Reservation Agent Name Role Phone Sneha Agustin MD Primary Care Provider [phone] Encounters Date Type Department Care Team Description 04/27/2024 Lab Requisition [facility] Pathology & Laboratory Medicine - [facility] [address] [place] [address] Outr Resulting Lab, Provider from Last 3 Months Social History Tobacco Use Types Packs/Day Years Used Date Smoking Tobacco: Never Assessed Interpersonal Safety Answer Date Record ed Physically Hurt Never 06/10/2020 Verbally Threaten Not on file 06/10/2020 Sex and Gender Information Value Date Recorded Sex Assigned at Not on file Gender Identity Not on file Sexual Orientation Not on file Plan of Treatment Not on file Procedures Procedure Name Priority Date/Time Associated Diagnosis Comments LH Routine 04/26/2024 15:00 EDT FSH Routine 04/26/2024 15:00 EDT from Last 3 Months Results * LH (04/26/2024 15:00 EDT) Luteinizing Hormone 49.1 See Note mIU/mL 04/27/2024 18:23 EDT [facility] Comment: NOTE: Female Reference Ranges: Pre-Pubertal: ?<6.0 mIU/mL Menstruating: Follicular Phase(-12 to -4 days: ??1.9 - 12.5 mIU/mL Midcycle(-3 to +2 days): ?8.7 - 76.3 mIU/mL Luteal Phase(+4 to +12 days): ? 0.5 - 16.9 mIU/mL Post Menopausal: 15.9 - 54.0 mIU/mL Blood VENOUS BLOOD / Unknown 04/26/2024 15:00 EDT 04/27/2024 17:08 EDT Provider Outr Resulting Lab CHEMISTRY & BLOOD GAS ORDERABLES Performing Organization Address [facility] Co de Phone Number [facility] [address] [place] [address] * FSH (04/26/2024 15:00 EDT) [facility] FSH 17.2 See Note mIU/mL 04/27/2024 18:23 EDT [facility] Blood VENOUS BLOOD / Unknown 04/26/2024 15:00 EDT 04/27/2024 17:08 EDT Narrative [facility] - 04/27/2024 18:23 EDT NOTE: Female FSH Reference Ranges (Menstruating): PHYSIOLOGICAL STATUS ? REFERENCE RANGE ? Follicular (-12 to -4 days): ?? 2.5 - 10.2 mIU/mL Midcycle (-3 to +2 days): ?3.4 - 33.4 mIU/mL Luteal (+4 to +12 days): ? 1.5 - 9.1 mIU/mL Postmenopausal: ?23.0 - 116.3 mIU/mL Reference Ranges for pediatric non-menstruating female patients have not been established. Provider Outr Resulting Lab CHEMISTRY & BLOOD GAS ORDERABLES [facility] [address] [place] [address] from Last 3 Months Care Teams Hotel Reservation Agent Relationship Specialty Start Date End Date Sneha Agustin MD [address] [place] [address] PCP - General 08/06/11
--- OUTSIDE RECORDS SUMMARY | 2024-06-08 00:59 | XMS_ITS | Encounter Summary ---
Author Organization [facility] Address [address] [place] [address] Care Team Providers Care Wrecking Car Driver Name Role Phone Sneha Agustin MD Primary Care Provider [phone] Encounter Details Date Type Department Care Team (Latest Contact Info) Description 03/05/2017 11:59 EDT - 03/05/2017 23:59 EDT Hospital Encounter [address] [address] Unknown, Provider, Discharge Disposition: Home or Self Care Social History Tobacco Use Types Packs/Day Years Used Date Smoking Tobacco: Never Assessed Sex and Gender Information Value Date Recorded Sex Assigned at Not on file Gender Identity Not on file Sexual Orientation Not on file documented as of this encounter Discharge Disposition Disposition Code Departure Means Destination Home or Self [facility] documented in this encounter Plan of Treatment Not on file documented as of this encounter Visit Diagnoses Not on filedocumented in this encounter Care Teams Wrecking Car Driver Relationship Specialty Start Date End Date Sneha Agustin MD [address] [place] [address] PCP - General 08/06/11 documented as of this encounter
--- OUTSIDE RECORDS SUMMARY | 2024-06-08 00:59 | XMS_ITS | Encounter Summary ---
Author Organization [facility] Address [address] [place] [address] Care Team Providers Care Steam Power Plant Operator Name Role Phone Unavailable Primary Care Provider Unavailabl e Encounter Details Date Type Department Care Team (Late st Contact Info) Description 10/28/2010 Results Only [facility] Laboratory Services - [facility] ([facility] [address] [place], [place] [phone] [place] [address] [place] [address],[address] [place] [address] Social History Tobacco Use Types [...] Priority Date/Time Associated Diagnosis Comments CYTOPATHOLOGY Routine 10/28/2010 0:00 EST documented in this encounter Results * CYTOPATHOLOGY (10/28/2010 0:00 EST) Pathology Report: CYTOPATHOLOGY REPORT ? Reports generated via electronic interface contain original data; ? however they are lacking the format of the original report. ? Caution should be taken when reading/interpreti ng unformatted reports. ? Name: ? ZAIDA YOUNG ? Accession #: ? [id number] ? : ? 1975 (Age: 35) ??F ?Collect Date: ? 10/28/2010 ? Location: ? [facility] ? Receive Date: ? 10/29/2010 ? Provider: ?ANNABEL CASH MD ? Copy to: ? Specimen/Source: ?Pap Test, Cervix/Endocervix, ThinPrep Imaging System ? with manual evaluation ? Last Menstrual Period: ? 09/27/2010 ? SPECIMEN ADEQUACY ? Satisfactory for Evaluation ? - transformation zone component present ? GENERAL CATEGORIZATION ? Negative for Intraepithelial Lesion or Malignancy ? Document reviewed and electronically signed by: ? Ariana [place], CT(ASCP) ? Report Date: ??11/05/2010 12:15 ? End of Report ? SHAYAN GARZA 10/28/2010 10/29/2010 Annabel Cash MD PATHOLOGY ORDERABLES [facility] [address] [place] [address] documented in this encounter Visit Diagnoses Not on filedocumented in this encounter
--- OUTSIDE RECORDS SUMMARY | 2024-06-08 00:59 | XMS_ITS | Encounter Summary ---
Author Organization [facility] Address [address] [place] [address] Care Team Providers Care Funeral Home Associate Name Role Phone Sneha Agustin MD Primary Care Provider [phone] Encounter Details Date Type Department Care Team (Late st Contact Info) Description 04/27/2024 Lab Requisition [facility] Pathology & Laboratory Medicine - [address] [address] Outr Resulting Lab, Provider Social History Tobacco Use Types Packs/Day Years [...] 15:00 EDT FSH Routine 04/26/2024 15:00 EDT documented in this encounter Results * LH (04/26/2024 15:00 EDT) Luteinizing Hormone 49.1 See Note mIU/mL 04/27/2024 18:23 EDT [facility] Comment: NOTE: Female Reference Ranges: [...] Resulting Lab CHEMISTRY & BLOOD GAS ORDERABLES [facility] [address] [place], [place] [id number] * FSH (04/26/2024 15:00 EDT) FSH 17.2 See Note mIU/mL 04/27/2024 18:23 EDT [facility] Blood VENOUS BLOOD / Unknown 04/26/2024 15:00 EDT 04/27/2024 17:08 EDT Narrative [facility] - 04/27/2024 18:23 EDT NOTE: [...] Resulting Lab CHEMISTRY & BLOOD GAS ORDERABLES [facility] [address] [place] [address] documented in this encounter Visit Diagnoses Not on filedocumented in this encounter Care Teams Funeral Home Associate Relationship Specialty Start Date End Date Sneha Agustin MD [address] [place] [id number] PCP - General 08/06/11 documented as of this encounter
--- OUTSIDE RECORDS SUMMARY | 2024-06-08 00:59 | XMS_ITS | Encounter Summary ---
Author Organization [facility] Address [facility] [place] [address] Care Team Providers Care Supervisor Pastry Name Role Phone Sneha Agustin MD Primary Care Provider [phone] Reason for Visit * Reason Comments Skin Check Encounter Details Date Type Department Care Team (Late st Contact Info) Description 07/17/2022 4:30 PM EDT Office Visit Dermatology at [facility] [address] [place] [address] Chanelle Stein MD [facility] [place] [address] Seborrheic keratoses; Matos angioma; Multiple benign melanocytic nevi of upper and lower extremities and trunk; Lentigines; Telangiectasia; Inflammatory papule; Dermatofibroma; Inflamed seborrheic keratosis Social History Tobacco Use Types Packs/Day Years Used Date Smoking Tobacco: Former Cigarettes Q uit: 02/22/2010 Smokeless Tobacco: Never Sex and Gender Information Value Date Recorded Sex Assigned at Not on file Gender Identity Not on file Sexual Orientation Not on file documented as of this encounter Progress Notes * Chanelle Stein MD - 07/17/2022 4:30 PM EDT Images from the original note were not included. DEPARTMENT OF DERMATOLOGY Medical Dermatology Clinic Provider: Chanelle Stein MD Patient's preferred name Zaida Preferred contact method for results []Phone []myD-H []Letter Detailed phone message OK? Are there any other people with whom we may discuss your care? Past Medical History Date, location, treatment Melanoma N Dysplastic nevi N SCC N BCC N AKs LN2 UV Exposure & Protection Sun Protection: SPF 35 sunscreen Other relevant past medical history Herpes labialis Family History Details Melanoma Father NMSC Other relevant family history Social History Occupation: Self employed (spray foam insulation) Hobbies: Other: Pre-Procedure Questions Details Allergy to lidocaine, epinephrine, Dermabond, chlorhexidine, or adhesives Bleeding disorder or blood thinners Pacemaker, defibrillator, deep brain stimulator, cochlear implant History of Present Illness: Zaida Young is a 46 y.o. Patient returns to clinic today for a full skin examination. - Left cheek, broken blood vessel. - Right dorsal hand popped up in the last 24 hrs. - Mole on the right breast that peeled off. Last visit at Dermatology: 07/25/2020 Last visit with this provider: Visit date not found Medications: Reviewed in eD-H Allergies: Reviewed in eD-H Skin Examination: Full skin examination: Patient asked to undress to their comfort level. Verbalized that the provider???s preference is that the patient remove all clothing and that the provider will not examine areas patient elects to keep covered. Patient elects to keep underwear on and have the following examined: scalp, hair, face, ears, neck, chest, axillae, abdomen, back, and upper and lower extremities. Genitalia and buttocks were not examined. Assessment/Plan #. Inflamed Seborrheic Keratosis - Inflamed, stuck on, waxy papule on the left fourth finger (x1). - Discussed benign nature of lesion(s) and provided reassurance. - Due to irritation present on today's exam and history of symptoms, discussed removal with cryotherapy. - Patient elects to proceed with cryotherapy today. Procedure: Destruction of lesion(s) with cryotherapy (LN2). Location(s): As noted above Number: 1 Discussed procedure and expectations including risks and benefits. Verbal consent obtained. Treatedwith LN2. There were no complications; Patient tolerated the procedure well. Post-procedure expectations and wound care were reviewed. #. Telangiectasias - Dilated blood vessels on the nose. - Discussed benign nature of lesion(s) and provided reassurance. No treatment necessary at this time. #. Dermatofibroma - Firm papule, centrally raised and sclerotic, with peripheral hyperpigmentation and dimpling with lateral pressure on the left lateral knee. - Discussed that these are benign fibrous (scar-like) lesions. No treatment necessary. #. Matos Angiomas - Multiple bright red, well-demarcated papules on the trunk and extremities. - Discussed benign nature of lesions and provided reassurance. No treatment necessary at this time. #. Benign Nevi - Scattered medium brown, evenly pigmented macules and papules on the trunk and extremities with reassuring pigment pattern on dermoscopy. - Discussed benign nature of lesions and provided reassurance. Will continue to monitor. #. Lentigines - Scattered light-brown, evenly pigmented, well-demarcated macules on sun-exposed areas of the trunk and extremities. - No worrisome pigmented lesions. Discussed benign nature of lesions and provided reassurance. Willcontinue to monitor. #. Seborrheic Keratoses - Stuck on, waxy papules on the trunk and extremities. - Discussed benign nature of lesions and provided reassurance. No treatment necessary at this time. Other: ??? Sun protection discussed (protective clothing and SPF30+ broad-spectrum sunscreen) RTC: 2 years for FSE []Note routed to litigation secretary [x]Recall placed in scheduling system []Appointment scheduled at checkout Scribe attestation: Willie Jeronimo and Amanda Swenson LPN have performed the documentation for this encounter in the presence of and acting as a scribe for Chanelle Stein MD. I performed the above scribed service and agree with the accuracy of the documentation in this encounter. Reviewed and signed by: Chanelle Stein MD Dermatology [facility] documented in this encounter Plan of Treatment Not on file documented as of this encounter Visit Diagnoses Diagnosis Seborrheic keratoses Matos angioma Nevus, non-neoplastic Multiple benign melanocytic nevi of upper and lower extremities and trunk Lentigines Other dyschromia Telangiectasia Other and unspecified capillary diseases Inflammatory papule Other specified disorder of skin Dermatofibroma Benign neoplasm of skin, site unspecified Inflamed seborrheic keratosis documented in this encounter Care Teams Supervisor Pastry Relationship Specialty Start Date End Date Sneha Agustin MD [address] [place] [address] PCP - General Family Medicine 07/18/19 documented as of this encounter
--- OUTSIDE RECORDS SUMMARY | 2024-06-08 00:59 | XMS_ITS | Clinical Summary ---
Author Organization [facility] Address [address] [place] [address] Care Team Providers Care Van Driver Helper Name Role Phone Sneha Agustin MD Primary Care Provider [phone] Encounters Date Type Department Care Team Description 04/27/2024 Lab Requisition [facility] Pathology & Laboratory Medicine - [facility] [address] [place] [address] Outr Resulting Lab, Provider from Last 3 [...] Health Maintenance Due Date Last Done Comments Hepatitis C Screen 1975 Hepatitis B Vaccine (1 of 3 - 19+ 3-dose series) 08/16 COVID-19 Vaccine ( season) 2023 Procedures Procedure Name Priority Date/Time Associated Diagnosis Comments LH Routine 04/26/2024 15:00 EDT FSH Routine 04/26/2024 15:00 EDT from Last 3 Months Results * LH (04/26/2024 15:00 EDT) Luteinizing Hormone 49.1 See Note mIU/mL 04/27/2024 18:23 EDT [facility] Comment: NOTE: Female Reference [...] Resulting Lab CHEMISTRY & BLOOD GAS ORDERABLES [facility] [address] [place], [place] [id number] * FSH (04/26/2024 15:00 EDT) FSH 17.2 See Note mIU/mL 04/27/2024 18:23 EDT [facility] Blood VENOUS BLOOD / Unknown 04/26/2024 15:00 EDT 04/27/2024 17:08 EDT Narrative [facility] - 04/27/2024 18:23 EDT [...] Resulting Lab CHEMISTRY & BLOOD GAS ORDERABLES [facility] [address] [place] [address] from Last 3 Months Care Teams Van Driver Helper Relationship Specialty Start Date End Date Sneha Agustin MD [address] [place] [address] [facility] - General 08/06/11
--- OUTSIDE RECORDS SUMMARY | 2024-06-08 00:59 | XMS_ITS | Encounter Summary ---
Author Organization [facility] Address [address] [place] [address] Care Team Providers Care Manpower Development Manager Name Role Phone Unavailable Primary Care Provider Unavailabl e Encounter Details Date Type Department Care Team (Late st Contact Info) Description 10/17/2008 Before PRISM Converted Visit (Maple) [facility] - Maple conversion [address] [place] [address] Frankie Mcpherson MD [address] [id number] Social History Tobacco Use Types Packs/Day Years Used Date Smoking Tobacco: Never Assessed Sex and Gender Information Value Date Recorded Sex Assigned at Not on file Gender Identity Not on file Sexual Orientation Not on file documented as of this encounter Plan of Treatment Not on file documented as of this encounter Procedures Procedure Name Priority Date/Time Associated Diagnosis Comments CYTOPATHOLOGY Routine 10/17/2008 0:00 EST documented in this encounter Results * CYTOPATHOLOGY (10/17/2008 0:00 EST) Pathology Report: CYTOPATHOLOGY REPORT ? Reports generated via electronic interface contain original data; ? however they are lacking the format of the original report. ? Caution should be taken when reading/interpreti ng unformatted reports. ? Name: ? ZAIDA YOUNG ? Accession #: ? [id number] ? : ? 1975 (Age: 33) ??F ?Collect Date: ? 10/17/2008 ? Location: ? [facility] ? Receive Date: ? 10/18/2008 ? Provider: ?FRANKIE MCPHERSON MD ? Copy to: ? Specimen/Source: ?Pap Test, Cervix/Endocervix, ThinPrep Imaging System ? with manual evaluation ? Last Menstrual Period: ? 12/5/08 ? SPECIMEN ADEQUACY ? Satisfactory for Evaluation ? - transformation zone component present ? GENERAL CATEGORIZATION ? Negative for Intraepithelial Lesion or Malignancy ? INTERPRETATION ? Reactive cellular changes associated with inflammation present (includes ?? repair). ? Document reviewed and electronically signed by: ? ABDELMONEM ELHOSSEINY MD ? Report Date: ??10/20/2008 17:13 ? End of Report ? SHAYAN GARZA 10/17/2008 10/18/2008 Frankie Mcpherson MD PATHOLOGY ORDERABLES [facility] [address] [place] [address] documented in this encounter Visit Diagnoses Not on filedocumented in this encounter
--- OUTSIDE RECORDS SUMMARY | 2024-06-08 01:00 | XMS_ITS | Encounter Summary ---
Author Organization [facility] Address [address] [place] [address] Care Team Providers Care Orbitread Operator Name Role Phone Unavailable Primary Care Provider Unavailabl e Encounter Details Date Type Department Care Team (Late st Contact Info) Description 11/07/2003 Results Only [facility] - Maple conversion [address] [place] [address] Walker Love MD [address] [place], [place] [phone] Social History Tobacco Use Types Packs/Day Years Used Date Smoking Tobacco: Never Assessed Sex and Gender Information Value Date Recorded Sex Assigned at Not on file Gender Identity Not on file Sexual Orientation Not on file documented as of this encounter Plan of Treatment Not on file documented as of this encounter Procedures Procedure Name Priority Date/Time Associated Diagnosis Comments CYTOPATHOLOGY Routine 11/07/2003 0:00 EST documented in this encounter Results * CYTOPATHOLOGY (11/07/2003 0:00 EST) Pathology Report: CYTOPATHOLOGY REPORT Reports generated via electronic interface contain original data; however they are lacking the format of the original report. Caution should be taken when reading/interpreti ng unformatted reports. Name: ? ZAIDA YOUNG ? Accession #: ? [id number] : ? 1975 (Age: 28) ??F ?Collect Date: ? 11/07/2003 Location: ? [facility] ? Receive Date: ? 11/08/2003 Provider: ?WALKER LOVE MD Copy to: ? Specimen/Source: ?ThinPrep Pap Test, Cervix/Endocervix Last Menstrual Period: ? 10/26/03 Other: ? HPVA - HPV testing requested if ASC-US on the current ThinPrep Pap test. ? SPECIMEN ADEQUACY ? Satisfactory for Evaluation - transformation zone component present GENERAL CATEGORIZATION ? Negative for Intraepithelial Lesion or Malignancy ? Document reviewed and electronically signed by: ? KATHRIN Martinez(ASCP) ? Report Date: ??11/14/2003 08:13 End of Report SHAYAN GARZA 11/07/2003 11/08/2003 Walker Love MD PATHOLOGY ORDERABLES [facility] GAR[facility] [address] [place] [address] documented in this encounter Visit Diagnoses Not on filedocumented in this encounter
--- OUTSIDE RECORDS SUMMARY | 2024-06-08 01:00 | XMS_ITS | Encounter Summary ---
Author Organization [facility] Address [address] [place] [address] Care Team Providers Care Financial Specialist Name Role Phone Unavailable Primary Care Provider Unavailabl e Encounter Details Date Type Department Care Team (Latest Contact Info) Description 11/16/2003 7:14 EST - 11/17/2003 11:59 EST Hospital Encounter [facility] Neurosurgery Unit [address] [place] [address] Jaimie Child MD Discharge Disposition: Home or Self [...] Date/Time Associated Diagnosis Comments SURGICAL PATHOLOGY Routine 11/16/2003 0:00 EST documented in this encounter Results * SURGICAL PATHOLOGY (11/16/2003 0:00 EST) Pathology Report: SURGICAL PATHOLOGY REPORT Reports generated via electronic interface contain original data; however they are lacking the format of the original report. Caution should be taken when reading/interpreti ng unformatted reports. Name: ? ZAIDA YOUNG ? Accession #: ? [id number] ? : ? 1975 (Age: 28) ??F ? Collect Date: ? 11/16/2003 ? Location: ? [facility] ? Receive Date: ? 11/16/2003 ? Provider: JAIMIE CHILD MD Copy to: ? Final Pathologic Diagnosis: ? Abdomen, skin and subcutaneous adipose tissue, excision: - Skin and adipose tissue with no pathologic features. ??Gross only. Document reviewed and electronically signed by: Augusto Syed MD Report ??Date: 11/22/2003 14:36 By the signature above, the attending physician certifies that he/she has personally conducted a gross and/or microscopic examination of the described specimens and rendered or confirmed the above diagnosis. Specimen(s) Received: ? Abdominal tissue and skin Clinical History: ? Localized adipose tissue Gross Description: ? Received fresh labelled Young and abdominal adipose tissue are two triangular portions of adipose tissue and skin, and three smaller fragments of adipose tissue, which have an aggregate measurement of 28.0 x 21.0 x 4.5 cm. The specimen weighs 1100 grams. ??The two larger fragments are triangular shaped with andersen-white unremarkable overlying skin. ??Serial sections reveal andersen-yellow lobulated adipose tissue. ??No masses or nodules are identified. ??The smaller fragments of composed of andersen-white lobulated fibroadipose tissue without masses or nodules. ??Gross only. ??(Dr. Peña-)/tmg ?? End of Report SHAYAN GARZA 11/16/2003 11/16/2003 13: 56 EST Jaimie Child MD PATHOLOGY ORDERABLES DOWNEYEMILEE GARZA [address] [place] [address] documented in this encounter Visit Diagnoses Not on filedocumented in this encounter
--- OUTSIDE RECORDS SUMMARY | 2024-06-08 01:00 | XMS_ITS | Encounter Summary ---
Author Organization [facility] Address [address] [place] [address] Care Team Providers Care Condenser Operator Name Role Phone Unavailable Primary Care Provider Unavailabl e Encounter Details Date Type Department Care Team (Late st Contact Info) Description 08/11/2001 Results Only [facility] - Maple conversion [address] [place] [address] Reny Jerome, [place], [place] [phone] Social History Tobacco Use Types Packs/Day Years Used Date Smoking Tobacco: Never Assessed Sex and Gender Information Value Date Recorded Sex Assigned at Not on file Gender Identity Not on file Sexual Orientation Not on file documented as of this encounter Plan of Treatment Not on file documented as of this encounter Procedures Procedure Name Priority Date/Time Associated Diagnosis Comments CYTOPATHOLOGY Routine 08/11/2001 0:00 EDT documented in this encounter Results * CYTOPATHOLOGY (08/11/2001 0:00 EDT) Pathology Report: CYTOPATHOLOGY REPORT Reports generated via electronic interface contain original data; however they are lacking the format of the original report. Caution should be taken when reading/interpreti ng unformatted reports. Name: ? ZAIDA SPEAR ? Accession #: ? [id number] : ? 1975 (Age: 25) ??F ?Collect Date: ? 08/11/2001 Location: ? [facility] ? Receive Date: ? 08/13/2001 Provider: ?RENY JEROME CNM Copy to: ? Specimen/Source: ?ThinPrep Pap Test, Cervix/Endocervix Last Menstrual Period: ? 06/05/01 Menstrual/Pregnanc y Status: ? Previous Gynecologic Pathology: ? Yes: 1993, paps wnl since ? SPECIMEN ADEQUACY ? Satisfactory for evaluation. GENERAL CATEGORIZATION ? Within Normal Limits ? Document reviewed and electronically signed by: ? KATHRIN Solano(ASCP) ? Report Date: ??2001 12:35 End of Report SHAYAN GARZA 08/11/2001 08/13/2001 Reny Jerome CNM PATHOLOGY ORDERABLES [facility] GAR[facility] [address] [place] [address] documented in this encounter Visit Diagnoses Not on filedocumented in this encounter
--- OUTSIDE RECORDS SUMMARY | 2024-06-08 01:00 | XMS_ITS | Encounter Summary ---
Author Organization [facility] Address [address] [place] [address] Care Team Providers Care Muck Hauler Name Role Phone Unavailable Primary Care Provider Unavailabl e Encounter Details Date Type Department Care Team (Late st Contact Info) Description 01/28/2002 Results Only [facility] - Maple conversion [address] [place] [address] Walker Love MD [address] [place], [place] [phone] Social History Tobacco Use Types Packs/Day Years Used Date Smoking Tobacco: Never Assessed Sex and Gender Information Value Date Recorded Sex Assigned at Not on file Gender Identity Not on file Sexual Orientation Not on file documented as of this encounter Plan of Treatment Not on file documented as of this encounter Procedures Procedure Name Priority Date/Time Associated Diagnosis Comments SURGICAL PATHOLOGY Routine 01/28/2002 0:00 EST documented in this encounter Results * SURGICAL PATHOLOGY (01/28/2002 0:00 EST) Pathology Report: SURGICAL PATHOLOGY REPORT Reports generated via electronic interface contain original data; however they are lacking the format of the original report. Caution should be taken when reading/interpreti ng unformatted reports. Name: ? ZAIDA YOUNG ? Accession #: ? [id number] ? : ? 1975 (Age: 26) ??F ? Collect Date: ? 01/28/2002 ? Location: ? [facility] ? Receive Date: ? 01/28/2002 ? Provider: WALKER LOVE MD Copy to: LAURE ESCUDERO MD ? Final Pathologic Diagnosis: ? Skin of neck, right side, punch biopsy: - ??Hemangioma. Document reviewed and electronically signed by: Marylou Stover MD Report ??Date: 02/01/2002 15:46 By the signature above, the attending physician certifies that he/she has personally conducted a gross and/or microscopic examination of the described specimens and rendered or confirmed the above diagnosis. Specimen(s) Received: ? Skin lesion; R side of neck Clinical History: ? Skin lesion Gross Description: ? Received in formalin labelled Young and skin lesion is a punch biopsy of skin which measures 0.3 cm in diameter and 0.2 cm in depth. ??The cutaneous surface is andersen-white. ??The specimen is submitted intact in one cassette. ??(Dr. Peña)/dtl End of Report SHAYAN GARZA 01/28/2002 01/28/2002 15: 33 EST Walker Love MD PATHOLOGY ORDERABLES Performing Organization Address City/State/[facility] Co de Phone Number SHAYAN GARZA [address] [place] [address] documented in this encounter Visit Diagnoses Not on filedocumented in this encounter
--- OUTSIDE RECORDS SUMMARY | 2024-06-08 01:00 | XMS_ITS | Encounter Summary ---
Author Organization [facility] Address [address] [place] [address] Care Team Providers Care Warranty Clerk Name Role Phone Unavailable Primary Care Provider Unavailabl e Encounter Details Date Type Department Care Team (Late st Contact Info) Description 09/29/2002 Results Only [facility] - Maple conversion [address] [place] [address] Walker Love MD [address] [place], [place] [phone] Social History Tobacco Use Types Packs/Day Years Used Date Smoking Tobacco: Never Assessed Sex and Gender Information Value Date Recorded Sex Assigned at Not on file Gender Identity Not on file Sexual Orientation Not on file documented as of this encounter Plan of Treatment Not on file documented as of this encounter Procedures Procedure Name Priority Date/Time Associated Diagnosis Comments CYTOPATHOLOGY Routine 09/29/2002 0:00 EST documented in this encounter Results * CYTOPATHOLOGY (09/29/2002 0:00 EST) Pathology Report: CYTOPATHOLOGY REPORT Reports generated via electronic interface contain original data; however they are lacking the format of the original report. Caution should be taken when reading/interpreti ng unformatted reports. Name: ? ZAIDA YOUNG ? Accession #: ? [id number] : ? 1975 (Age: 27) ??F ?Collect Date: ? 09/29/2002 Location: ? [facility] ? Receive Date: ? 10/03/2002 Provider: ?WALKER LOVE MD Copy to: ? Specimen/Source: ?ThinPrep Pap Test, Cervix/Endocervix Last Menstrual Period: ? 09/12/02 Hormonal/Contracep tive Status: ? Tubal ligation ? SPECIMEN ADEQUACY ? Satisfactory for Evaluation - transformation zone component present GENERAL CATEGORIZATION ? Negative for Intraepithelial Lesion or Malignancy ? Document reviewed and electronically signed by: ? KATHRIN Goodwin(ASCP) ? Report Date: ??10/07/2002 10:33 End of Report SHAYAN GARZA 09/29/2002 10/03/2002 Walker Love MD PATHOLOGY ORDERABLES [facility] [address] [place] [address] documented in this encounter Visit Diagnoses Not on filedocumented in this encounter
--- OUTSIDE RECORDS SUMMARY | 2024-06-08 01:00 | XMS_ITS | Encounter Summary ---
Author Organization [facility] Address [address] [place] [address] Care Team Providers Care Reproduction Machine Loader Name Role Phone Unavailable Primary Care Provider Unavailabl e Encounter Details Date Type Department Care Team (Late st Contact Info) Description 12/16/2004 Results Only [facility] Surgery - [address], [address] [place] [address] Jaimie Child MD Social History Tobacco Use [...] Date/Time Associated Diagnosis Comments SURGICAL PATHOLOGY Routine 12/16/2004 0:00 EST documented in this encounter Results * SURGICAL PATHOLOGY (12/16/2004 0:00 EST) Pathology Report: SURGICAL PATHOLOGY REPORT Reports generated via electronic interface contain original data; however they are lacking the format of the original report. Caution should be taken when reading/interpreti ng unformatted reports. Name: ? ZAIDA YOUNG ? Accession #: ? [id number] ? : ? 1975 (Age: 29) ??F ? Collect Date: ? 12/16/2004 ? Location: ? [facility] ? Receive Date: ? 12/17/2004 ? Provider: JAIMIE CHILD MD Copy to: BOONE ALBRIGHT MD ? Final Pathologic Diagnosis: A. ?Breast, right, reduction mammoplasty: 1. ?Breast tissue: ? - Fibrocystic changes including interlobular fibrosis and microcyst formation. 2. ?Skin: ? - No pathologic features. B. ?Breast, left, reduction mammoplasty: 1. ?Breast tissue: ? - Fibrocystic changes including interlobular fibrosis and microcyst formation. 2. ?Skin: ? - No pathologic features. Document reviewed and electronically signed by: ALETA BRUSH MD Report ??Date: 12/19/2004 10:33 By the signature above, the attending physician certifies that he/she has personally conducted a gross and/or microscopic examination of the described specimens and rendered or confirmed the above diagnosis. Specimen(s) Received: A. ?Right breast tissue 438 grams, staple 12 o' clock position B. ?Left breast tissue 579 grams, staple 12 o' clock position Clinical History: ? Bilateral breast hypertrophy Gross Description: ? Received fresh labelled Young and right breast tissue is a 498 gram, V-shaped 18.0 x 2.0 x 3.3 cm portion of fibrofatty soft tissue, partially surfaced by an oriented, unremarkable andersen-pink 16.0 x 13.5 cm strip of skin. Near the apex of the specimen, there is an 3.5 cm in diameter oval surgical defect consistent with the areolar region. ??The specimen is sectioned and the cut surfaces reveal approximately 90% lobulated adipose tissue intermixed with 10% dense white-pink microcystic fibrous tissue. ??No discrete or palpable lesions are identified. ??Hogshead Mat Inspector sections of skin and fibrous tissue are submitted as (A1) and (A2). Received fresh labelled Young and left breast tissue is a 620 gram V-shaped 18.0 x 18.0 x 3.5 cm portion of fibrofatty soft tissue partially surfaced by an oriented unremarkable 16.5 x 16.5 cm strip of andersen-pink skin. ??Adjacent to the apex, there is a 3.5 cm in diameter oval surgical defect consistent with the areolar region. ??The specimen is sectioned and the cut surfaces reveal approximately 85% lobulated adipose tissue intermixed with 15% dense andersen-white pink microcystic fibrous tissue. ??No discrete or palpable lesions are identified. ??Hogshead Mat Inspector sections of skin and fibrous tissue are submitted as (B1) and (B2). ??(Yazmin Powell)/tmg ?? End of Report SHAYAN GARZA 12/16/2004 12/17/2004 9:2 0 EST Jaimie Child MD PATHOLOGY ORDERABLES [facility] [address] [place] [address] documented in this encounter Visit Diagnoses Not on filedocumented in this encounter
--- OUTSIDE RECORDS SUMMARY | 2024-06-08 01:00 | XMS_ITS | Encounter Summary ---
Author Organization [facility] Address [address] [place] [address] Care Team Providers Care Exhaust Equipment Operator Name Role Phone Unavailable Primary Care Provider Unavailabl e Encounter Details Date Type Department Care Team (Late st Contact Info) Description 03/22/2002 Results Only [facility] - Maple conversion [address] [place] [address] Walker Lvoe MD [address] [place], [place] [id number] Social History Tobacco Use Types Packs/Day Years Used Date Smoking Tobacco: Never Assessed Sex and Gender Information Value Date Recorded Sex Assigned at Not on file Gender Identity Not on file Sexual Orientation Not on file documented as of this encounter Plan of Treatment Not on file documented as of this encounter Procedures Procedure Name Priority Date/Time Associated Diagnosis Comments SURGICAL PATHOLOGY Routine 03/22/2002 0:00 EDT documented in this encounter Results * SURGICAL PATHOLOGY (03/22/2002 0:00 EDT) Pathology Report: SURGICAL PATHOLOGY REPORT Reports generated via electronic interface contain original data; however they are lacking the format of the original report. Caution should be taken when reading/interpreti ng unformatted reports. Name: ? ZAIDA YOUNG ? Accession #: ? [id number] ? : ? 1975 (Age: 26) ??F ? Collect Date: ? 03/22/2002 ? Location: ? [facility] ? Receive Date: ? 03/22/2002 ? Provider: WALKER LOVE MD Copy to: LAURE SALMERON CARDIOLOGY NURSE ? Final Pathologic Diagnosis: A. ?Right fallopian tube, right tubal ligation: 1. ?Complete cross sections obtained, no pathologic features. ??See comment. B. ?Left fallopian tube, left tubal ligation: ? 1. ??Complete cross sections obtained, no pathologic features. ??See comment. Comment: ? Deeper levels have been examined. ??(Dr. Iyre)/dtl Document reviewed and electronically signed by: XANDER IYER MD Report ??Date: 03/25/2002 15:10 By the signature above, the attending physician certifies that he/she has personally conducted a gross and/or microscopic examination of the described specimens and rendered or confirmed the above diagnosis. Specimen(s) Received: A. ?Segment right fallopian tube B. ?Segment left fallopian tube Clinical History: ? delivered 03/21/02, complete family, desires sterilization Gross Description: ? Received in formalin labelled Young and segment right fallopian tube is a segment of cylindrical fragment of soft tissue measuring 1.7 cm in length by 0.3 cm in diameter. ??The specimen is bisected and entirely submitted as (A). Received in formalin labelled Young and segment left fallopian tube is a portion of cylindrical fragment of soft tissue measuring 1.3 cm in length by 0.4 cm in diameter. ??The specimen is serially sectioned and two textiles sales representative sections are submitted as (B). ??(Dr. Amaral)/[facility] End of Report SHAYAN PENA [facility] 03/22/2002 03/22/2002 14: 51 EDT Walker Love MD PATHOLOGY ORDERABLES Performing Organization Address City/State/[facility] Co de Phone Number SHAYAN [facility] [address] [place] [address] documented in this encounter Visit Diagnoses Not on filedocumented in this encounter
== END ==
PROVIDERS: PCP Family Medicine; Visit Provider Family Medicine
DX: Z12.31 Encounter for screening mammogram for malignant neoplasm of breast (principal)
CPT/HCPCS: 77063; 77067